=== PATIENT | male | born 1960 | race Native Hawaiian/Other Pacific Islander ===

== ENCOUNTER 2017-02-07 00:10 | Inpatient (IN) | payer BC, OTHER ==
[2017-02-07] MEDS ORDERED: Aspirin 325 mg EC Tablets PO STA (00:37)
--- NOTE | 2017-02-07 00:37 | C.PDOC ---
History Of Present Illness Patient presents to the ED with complaints of chest pain and shortness of breath that began tonight. Patient denies any fever, chills, nausea, or vomiting. Time Seen by Provider: 02/07/17 00:36 Chief Complaint (Nursing): Chest Pain History Per: Patient History/Exam Limitations: no limitations Onset/Duration Of Symptoms: Hrs Current Symptoms Are (Timing): Still Present Context: Other Severity: Mild Pain Scale Rating Of: 4 Quality: Dull, Other (chest discomfort ) Associated Symptoms: denies: Nausea, Diaphoresis Exacerbating Factors: None Alleviating Factors: None Recent travel outside of the [place]: No Additional History Per: Family Past Medical History Reviewed: Historical Data, Nursing Documentation, Vital Signs Vital Signs: Last Vital Signs Temp 97.8 F 02/07/17 06:06 Pulse 62 02/07/17 06:06 Resp 16 02/07/17 06:06 BP 115/69 02/07/17 06:06 Pulse Ox 98 02/07/17 06:06 - Medical History PMH: Diabetes, HTN, Hypothyroidism Family History: States: No Known Family Hx - Social History Hx Tobacco Use: Yes Hx Alcohol Use: No Hx Substance Use: No - Immunization History Hx Tetanus Toxoid Vaccination: No Hx Influenza Vaccination: Yes Hx Pneumococcal Vaccination: No Review Of Systems Constitutional: Negative for: Fever, Chills Eyes: Negative for: Vision Change Cardiovascular: Positive for: Chest Pain. Negative for: Palpitations Respiratory: Positive for: Shortness of Breath. Negative for: Cough Gastrointestinal: Negative for: Nausea, Vomiting, Abdominal Pain, Diarrhea Genitourinary: Negative for: Incontinence Musculoskeletal: Negative for: Back Pain Skin: Negative for: Rash, Lesions, Jaundice Neurological: Negative for: Weakness Psych: Negative for: Anxiety Physical Exam - Physical Exam Appears: Non-toxic, No Acute Distress Skin: Warm, Dry Head: Normacephalic Eye(s): bilateral: Normal Inspection Oral Mucosa: Moist Neck: Supple Chest: Symmetrical Cardiovascular: Rhythm Regular Respiratory: No Rales, Rhonchi (bases), Wheezing (few) Gastrointestinal/Abdominal: Soft, No Tenderness, No Distention, No Guarding, No Rebound Back: Normal Inspection Extremity: Normal ROM, No Tenderness, Pedal Edema Extremity: Bilateral: Atraumatic, Normal Color And Temperature Neurological/Psych: Oriented x3, Normal Speech, Normal Cognition Gait: Steady ED Course And Treatment - Laboratory Results Result Diagrams: 02/07/17 00:59 02/07/17 00:59 ECG: Interpreted By Me, Viewed By Me ECG Rhythm: Sinus Rhythm (71), 1st Degree HB, R BBB, Nonspecific Changes (lahb) O2 Sat by Pulse Oximetry: 100 (room air ) Pulse Ox Interpretation: Normal - Radiology CXR: Interpreted by Me, Viewed By Me CXR Interpretation: Yes: Other (? rll infiltrate). No: Fracture, Cardiomegaly, Pnemothorax Disposition Discussed With Dr.: Megan Gonzales Comment: accepted the pt on his service and took over the care at 3:15 AM Doctor Will See Patient In The: Hospital Counseled Patient/Family Regarding: Studies Performed, Diagnosis - Disposition Disposition: HOSPITALIZED Disposition Time: 00:37 Condition: FAIR - POA Present On Arrival: Poor Glycemic Control - Clinical Impression Clinical Impression: Chest pain, Elevated liver enzymes - Scribe Statement The provider has reviewed the documentation as recorded by the Scribe Jennifer Norwood All medical record entries made by the Scribe were at my direction and personally dictated by me. I have reviewed the chart and agree that the record accurately reflects my personal performance of the history, physical exam, medical decision making, and the department course for this patient. I have also personally directed, reviewed, and agree with the discharge instructions and disposition. Decision To Admit - Pt Status Changed To: Hospital Disposition Of: Inpatient - Admit Certification Admit to Inpatient:: After my assessment, the patient will require hospitalization for at least two midnights. This is because of the severity of symptoms shown, intensity of services needed, and/or the medical risk in this patient being treated as an outpatient. - InPatient: Physician Admission Certification: I certify that this patient requires 2 or more midnights of care for the following reason:: After my assessment, the patient will require hospitalization for at least two midnights. This is because of the severity of symptoms shown, intensity of services needed, and/or the medical risk in this patient being treated as an outpatient. - . Bed Request Type: Telemetry Admitting Physician: Megan Gonzales Patient Diagnosis: Chest pain, Elevated liver enzymes
[2017-02-07] MEDS ORDERED: Aspirin 325 mg EC Tablets PO ONE (00:50)
[2017-02-07 01:02] LABS: BASO % 0.6 % (0.0-2.0); EOS # 0.1 K/uL (0.0-0.7); EOS % 1.6 % (0.0-4.0); HEMATOCRIT 40.8 % (35.0-51.0); LYMPH # 1.6 K/uL (1.0-4.3); LYMPH % 30.5 % (20.0-40.0); MEAN CELL VOLUME 84.5 fL (80.0-94.0); MEAN CORPUSCULAR HEMOGLOBIN 27.5 pg (27.0-31.0); MEAN CORPUSCULAR HGB CONC 32.6 g/dL (33.0-37.0); MEAN PLATELET VOLUME 9.4 fL (7.2-11.7); MONO # 0.3 K/uL (0.0-0.8); MONO % 4.9 % (0.0-10.0); NRBC % 0.1 % (0.0-2.0); RED CELL DISTRIBUTION WIDTH 13.9 % (11.5-14.5); WHITE BLOOD COUNT 5.4 K/uL (4.8-10.8)
[2017-02-07 01:09] LABS: CHLORIDE 94 mmol/L (98-107)
[2017-02-07 01:10] LABS: POTASSIUM 4.1 mmol/L (3.6-5.2); SODIUM 132 mmol/L (132-148)
[2017-02-07 01:12] LABS: BILIRUBIN,TOTAL 0.6 mg/dL (0.2-1.3); CARBON DIOXIDE 28 mmol/L (22-30); GFR AFRICAN-AMERICAN > 60
[2017-02-07 01:13] LABS: ALKALINE PHOSPHATASE 73 U/L (38-126); ALT/SGPT 144 U/L (21-72); AST/SGOT 120 U/L (17-59); BLOOD UREA NITROGEN 29 mg/dL (9-20); CALCIUM 7.5 mg/dl (8.6-10.4); GLUCOSE,RANDOM 254 mg/dL (75-110); TOTAL PROTEIN 6.3 g/dL (6.3-8.3)
[2017-02-07 01:54] LABS: RBC URINE 3 /hpf (0-3); URINE BILIRUBIN NEGATIVE (NEGATIVE); URINE BLOOD NEGATIVE (NEGATIVE); URINE COLOR Yellow (YELLOW); URINE GLUCOSE (UA) 3+ mg/dL (Normal); URINE KETONE NEGATIVE (NEGATIVE); URINE LEUKOCYTE ESTERASE NEG Leu/uL (Negative); URINE PROTEIN 2+ mg/dL (NEGATIVE); URINE UROBILINOGEN NORMAL mg/dL (0.2-1.0); WBC URINE 2 /hpf (0-5)
[2017-02-07] MEDS ORDERED: Iodixanol 320 MG/ML 100 ML BOTTLE IV ONE ×2 (02:14→02:26)
[2017-02-07] MEDS ORDERED: metroNIDAZOLE IV 500 mg/100 ml 500 MG/100 ML BAG IVPB SCH (03:30)
[2017-02-07] MEDS ORDERED: metroNIDAZOLE IV 500 mg/100 ml 500 MG/100 ML BAG ONE (03:56)
--- NOTE | 2017-02-07 07:39 | RAD ---
PROCEDURE: CHEST RADIOGRAPH, 1 VIEW HISTORY: chest pain COMPARISON: 10/16/2014 FINDINGS: LUNGS: Mild venous congestion. Patchy bibasilar airspace opacities. PLEURA: No pneumothorax or pleural fluid seen. CARDIOVASCULAR: Cardiomegaly. OSSEOUS STRUCTURES: No significant abnormalities. VISUALIZED UPPER ABDOMEN: Normal. OTHER FINDINGS: None. IMPRESSION: Mild venous congestion. Patchy bibasilar airspace opacities.
--- NOTE | 2017-02-07 09:39 | CT ---
PROCEDURE: CT Abdomen and Pelvis without intravenous contrast HISTORY: elevated liver enzymes COMPARISON: None. TECHNIQUE: Multiple contiguous axial images were performed through the abdomen and pelvis with intravenous contrast. Subsequently, sagittal and coronal reformatted images were obtained. Contrast Dose: 100 cc of Visipaque intravenous contrast was administered. Radiation dose: Total exam DLP = 478 mGy-cm. This CT exam was performed using one or more of the following dose reduction techniques: Automated exposure control, adjustment of the mA and/or kV according to patient size, and/or use of iterative reconstruction technique. FINDINGS: LOWER THORAX: Heart is enlarged, specifically the right ventricle. Clinical correlation. Scattered atelectasis at the lung bases. Focal nodular consolidation within the medial right lower lobe measuring 1.1 centimeters. 2 millimeter nodule and or granuloma within the lateral aspect of the left lower lobe on series 3, image 3. LIVER: Unremarkable. No gross lesion or ductal dilatation. GALLBLADDER AND BILE DUCTS: Decompressed gallbladder. Small amount of pericholecystic fluid is detected. Clinical correlation. Correlation with right upper quadrant abdominal ultrasound may be helpful if clinically indicated. PANCREAS: Unremarkable. No gross lesion or ductal dilatation. SPLEEN: Unremarkable. ADRENALS: Unremarkable. No mass. KIDNEYS AND URETERS: Unremarkable. No hydronephrosis. No solid mass. VASCULATURE: Unremarkable. No aortic aneurysm. BOWEL: Mural thickening with trace surrounding inflammatory changes identified within the sigmoid colon which may represent an acute and or early acute colitis versus diverticulitis versus additional etiology. Clinical correlation. Mild thickening of the proximal stomach, nonspecific. APPENDIX: Unremarkable. Normal appendix. PERITONEUM: As above. LYMPH NODES: Unremarkable. No enlarged lymph nodes. BLADDER: Unremarkable. REPRODUCTIVE: Unremarkable. BONES: No acute fracture. OTHER FINDINGS: None. IMPRESSION: Decompressed gallbladder. Small amount of pericholecystic fluid is detected. Clinical correlation. Correlation with right upper quadrant abdominal ultrasound may be helpful if clinically indicated. Mural thickening within the sigmoid colon with trace surrounding inflammation which may represent an acute and or early acute focal colitis versus diverticulitis versus additional etiology. Clinical correlation. Mild thickening of the proximal stomach, nonspecific. Moderate cardiac enlargement. Clinical correlation. These findings were preliminarily reported at 3:08 a.m. on 02/07/[address] Terri Pang from [facility].
[2017-02-07] MEDS: Pantoprazole 40 mg EC Tab PO SCH (11:49)
[2017-02-07] MEDS: (Novolin R) Insulin Human Regular 100 units/ml vial SC SCH ×3 (11:50→22:37)
[2017-02-07] MEDS: Ciprofloxacin 400mg/200ml D5W 400 MG/200 ML BAG IVPB SCH ×2 (12:00→22:35)
--- NOTE | 2017-02-07 14:56 | CP.PCM.HP ---
History of Present Illness - History of Present Illness History of Present Illness: 57-year-old male patient with a past medical history of diabetes, hypertension, CAD, hypothyroidism, hyperlipidemia, systolic CHF, EF 40-50% 09/2014 with a bike or dyskinesis and moderate to severe mid antral septal wall hypokinesis presenting with chest pain and S OB. Patient describes intermittent midsternal chest pain radiating to left back. Exertion associated shortness of breath after walking for 30 seconds for the last 2 days. Denies abdominal pain, distention, heartburn, acid reflux, nausea, vomiting, hematemesis, hematochezia, melena, diarrhea, constipation, yellowish of skin or eyes, pruritus, confusion, unintentional weight loss. Denies recent travel, antibiotics, sick contacts. Present on Admission - Present on Admission Any Indicators Present on Admission: No Past Patient History - Past Medical History & Family History Past Medical History?: Yes - Past Social History Smoking Status: Former Smoker - CARDIAC Hx Hypertension: Yes - PULMONARY Hx Respiratory Disorders: No - NEUROLOGICAL Hx Neurological Disorder: No - HEENT Hx HEENT Problems: No - RENAL Hx Chronic Kidney Disease: No - ENDOCRINE/METABOLIC Hx Hypothyroidism: Yes - HEMATOLOGICAL/ONCOLOGICAL Hx Blood Disorders: No - INTEGUMENTARY Hx Dermatological Problems: No - MUSCULOSKELETAL/RHEUMATOLOGICAL Hx Musculoskeletal Disorders: No Hx Falls: No - GASTROINTESTINAL Hx Gastrointestinal Disorders: No - GENITOURINARY/GYNECOLOGICAL Hx Genitourinary Disorders: No - PSYCHIATRIC Hx Psychophysiologic Disorder: No Hx Substance Use: No - SURGICAL HISTORY Hx Surgeries: No - ANESTHESIA Hx Anesthesia: Yes Hx Anesthesia Reactions: No Hx Malignant Hyperthermia: No Meds Home Medications: Home Medication List Medication Instructions Recorded Confirmed Type Aspirin 325 mg PO DAILY #30 tab 02/12/17 Rx Atorvastatin Calcium 20 mg PO DAILY #30 tablet 02/12/17 Rx Metoprolol Succinate [Toprol XL] 25 mg PO DAILY #30 tab 02/12/17 Rx Allergies/Adverse Reactions: Allergies Allergy/AdvReac Type Severity Reaction Status Date / Time No Known Allergies Allergy Verified 03/11/17 09:38 Physical Exam - Constitutional Appears: Well - Head Exam Head Exam: ATRAUMATIC, NORMAL INSPECTION, NORMOCEPHALIC - Eye Exam Eye Exam: EOMI, Normal appearance, PERRL Pupil Exam: NORMAL ACCOMODATION, PERRL - ENT Exam ENT Exam: Mucous Membranes Moist, Normal Exam - Neck Exam Neck exam: Positive for: Normal Inspection - Respiratory Exam Respiratory Exam: Decreased Breath Sounds - Cardiovascular Exam Cardiovascular Exam: REGULAR RHYTHM, +S1, +S2 - GI/Abdominal Exam GI & Abdominal Exam: Diminished Bowel Sounds, Soft - Rectal Exam Rectal Exam: Deferred Results - Vital Signs Recent Vital Signs: Last Vital Signs Temp 98.2 F 02/07/17 12:00 Pulse 58 L 02/07/17 12:00 Resp 13 02/07/17 12:00 BP 129/74 02/07/17 12:00 Pulse Ox 100 02/07/17 12:00 - Labs Result Diagrams: 02/12/17 08:10 02/12/17 08:10 Labs: Laboratory Results - last 24 hr 02/07/17 10:58 Total Creatine Kinase 116 CK-MB (Mass) 1.80 Troponin I, Quant < 0.0120 Assessment & Plan (1) CAD (coronary artery disease) Status: Acute (2) Cardiomyopathy Status: Acute (3) Chest pain Status: Acute (4) Complete heart block Status: Acute (5) Decreased cardiac ejection fraction Status: Acute (6) Diabetes Status: Acute (7) Elevated liver enzymes Status: Acute (8) Syncope Status: Acute - Assessment and Plan (Free Text) Plan: Follow-up with cardiology abn stress test for cath tomrrow on aspand brilinta hoa as ordered
[2017-02-07] MEDS: metroNIDAZOLE IV 500 mg/100 ml 500 MG/100 ML BAG IVPB SCH (17:00)
[2017-02-07 18:04] LABS: CHLORIDE 98 mmol/L (98-107)
[2017-02-07 18:05] LABS: POTASSIUM 4.6 mmol/L (3.6-5.2); SODIUM 134 mmol/L (132-148)
[2017-02-07 18:07] LABS: ALB/GLOB RATIO 1.4 (1.0-2.1); ALKALINE PHOSPHATASE 51 U/L (38-126); AST/SGOT 51 U/L (17-59); BILIRUBIN,TOTAL 0.8 mg/dL (0.2-1.3); CARBON DIOXIDE 29 mmol/L (22-30); GFR AFRICAN-AMERICAN > 60
[2017-02-07 18:08] LABS: ALT/SGPT 106 U/L (21-72); BLOOD UREA NITROGEN 20 mg/dL (9-20); CALCIUM 8.2 mg/dl (8.6-10.4); GLUCOSE,RANDOM 296 mg/dL (75-110)
[2017-02-07] MEDS ORDERED: (Novolin 70/30) NPH/Regular 70/30 Units/ml 10 ml vial SC SCH (22:00)
[2017-02-07] MEDS ORDERED: (Novolog) Insulin Aspart, Recombinant 100 u/ml 10 ml vial SC SCH (22:00)
[2017-02-07] MEDS: Insulin Detemir 100 units/ml Vial (Levemir) SC SCH (22:36)
--- NOTE | 2017-02-08 00:12 | CP.PCM.CON ---
History of Present Illness - History of Present Illness History of Present Illness: Patient seen and evaluated Chest Pain For stress test in am Physical Examination - Constitutional Appears: No Acute Distress - Head Exam Head Exam: ATRAUMATIC, NORMOCEPHALIC - Eye Exam Eye Exam: EOMI, Normal appearance, PERRL Pupil Exam: NORMAL ACCOMODATION - ENT Exam ENT Exam: Mucous Membranes Moist - Respiratory Exam Respiratory Exam: Clear to Ausculation Bilateral, NORMAL BREATHING PATTERN. absent: Rales, Rhonchi, Wheezes - Cardiovascular Exam Cardiovascular Exam: REGULAR RHYTHM, +S1, +S2. absent: Murmur - GI/Abdominal Exam GI & Abdominal Exam: Soft, Normal Bowel Sounds. absent: Rigid - Extremities Exam Extremities Exam: Normal Capillary Refill. absent: Calf Tenderness, Pedal Edema - Neurological Exam Neurological Exam: Alert, Awake, Oriented x3 - Psychiatric Exam Psychiatric exam: Normal Affect, Normal Mood - Skin Skin Exam: Dry, Warm Past Patient History - Past Medical History & Family History Past Medical History?: Yes - Past Social History Smoking Status: Former Smoker - CARDIAC Hx Hypertension: Yes - PULMONARY Hx Respiratory Disorders: No - NEUROLOGICAL Hx Neurological Disorder: No - HEENT Hx HEENT Problems: No - RENAL Hx Chronic Kidney Disease: No - ENDOCRINE/METABOLIC Hx Hypothyroidism: Yes - HEMATOLOGICAL/ONCOLOGICAL Hx Blood Disorders: No - INTEGUMENTARY Hx Dermatological Problems: No - MUSCULOSKELETAL/RHEUMATOLOGICAL Hx Musculoskeletal Disorders: No Hx Falls: No - GASTROINTESTINAL Hx Gastrointestinal Disorders: No - GENITOURINARY/GYNECOLOGICAL Hx Genitourinary Disorders: No - PSYCHIATRIC Hx Psychophysiologic Disorder: No Hx Substance Use: No - SURGICAL HISTORY Hx Surgeries: No - ANESTHESIA Hx Anesthesia: Yes Hx Anesthesia Reactions: No Hx Malignant Hyperthermia: No Meds Home Medications: Home Medication List Medication Instructions Recorded Confirmed Type Aspirin 325 mg PO DAILY #30 tab 02/12/17 Rx Atorvastatin Calcium 20 mg PO DAILY #30 tablet 02/12/17 Rx Metoprolol Succinate [Toprol XL] 25 mg PO DAILY #30 tab 02/12/17 Rx Allergies/Adverse Reactions: Allergies Allergy/AdvReac Type Severity Reaction Status Date / Time No Known Allergies Allergy Unverified 10/16/14 15:25 - Medications Medications: Current Medications Aspirin (Aspirin) 325 mg PO DAILY [facility] Ciprofloxacin (Cipro 400mg/200ml Dsw) 400 mg in 200 mls @ 133 mls/hr IVPB Q12H [facility] Last Admin: 02/07/17 22:35 Dose: 133 mls/hr Metronidazole (Flagyl) 500 mg in 100 mls @ 100 mls/hr IVPB Q12H [facility] Last Admin: 02/07/17 17:00 Dose: 100 mls/hr Insulin Detemir (Levemir) 35 unit SC Q12 [facility] Last Admin: 02/07/17 22:36 Dose: 35 unit Insulin Human Regular (Novolin R) 0 unit SC ACHS [facility] PRN Reason: Protocol Last Admin: 02/07/17 22:37 Dose: Not Given Levothyroxine Sodium (Synthroid) 25 mcg PO DAILY@0630 [facility] Lisinopril (Zestril) 5 mg PO DAILY [facility] Metoprolol Succinate (Toprol Xl) 25 mg PO DAILY [facility] Pantoprazole Sodium (Protonix Ec Tab) 40 mg PO DAILY [facility] Last Admin: 02/07/17 11:49 Dose: 40 mg Ticagrelor (Brilinta) 90 mg PO BID [facility] Last Admin: 02/07/17 17:03 Dose: 90 mg Results - Vital Signs Recent Vital Signs: Last Vital Signs Temp 98.9 F 02/07/17 16:00 Pulse 57 L 02/07/17 16:00 Resp 15 02/07/17 16:00 BP 129/74 02/07/17 12:00 Pulse Ox 100 02/07/17 16:00 - Labs Result Diagrams: 02/12/17 08:10 02/12/17 08:10 Labs: Laboratory Results - last 24 hr 02/07/17 02/07/17 02/07/17 10:58 17:31 17:50 Sodium 134 Potassium 4.6 Chloride 98 Carbon Dioxide 29 Anion Gap 12 BUN 20 Creatinine 1.1 Est GFR ( Amer) > 60 Est GFR (Non-Af Amer) > 60 Random Glucose 296 H Calcium 8.2 L Total Bilirubin 0.8 AST 51 ALT 106 H D Alkaline Phosphatase 51 Total Creatine Kinase 116 93 CK-MB (Mass) 1.80 1.51 Troponin I, Quant < 0.0120 < 0.0120 Total Protein 6.0 L Albumin 3.5 Globulin 2.4 Albumin/Globulin Ratio 1.4 Assessment & Plan - Assessment and Plan (Free Text) Assessment: 1. Chest Pain 2. Hx of CAD/SC 3. DM 2 4. HTN 5. Hyperlipidemia Stress test and ECHO in am
[2017-02-08] MEDS: metroNIDAZOLE IV 500 mg/100 ml 500 MG/100 ML BAG IVPB SCH ×2 (04:38→16:57)
[2017-02-08] MEDS: Levothyroxine 25 MCG TAB PO SCH (05:55)
[2017-02-08 06:12] LABS: BASO % 0.7 % (0.0-2.0); EOS # 0.1 K/uL (0.0-0.7); EOS % 2.5 % (0.0-4.0); HEMATOCRIT 40.2 % (35.0-51.0); LYMPH # 1.5 K/uL (1.0-4.3); LYMPH % 35.6 % (20.0-40.0); MEAN CELL VOLUME 83.4 fL (80.0-94.0); MEAN CORPUSCULAR HEMOGLOBIN 27.7 pg (27.0-31.0); MEAN CORPUSCULAR HGB CONC 33.2 g/dL (33.0-37.0); MEAN PLATELET VOLUME 9.1 fL (7.2-11.7); MONO # 0.3 K/uL (0.0-0.8); NRBC % 0.1 % (0.0-2.0); RED CELL DISTRIBUTION WIDTH 13.7 % (11.5-14.5); WHITE BLOOD COUNT 4.2 K/uL (4.8-10.8)
[2017-02-08] MEDS: (Novolin R) Insulin Human Regular 100 units/ml vial SC SCH ×4 (08:00→21:29)
--- NOTE | 2017-02-08 08:06 | CP.PCM.CON ---
<Shari Mcgill - Last Filed: 02/08/17 12:18> History of Present Illness - History of Present Illness History of Present Illness: Gastroenterology Fellow/PGY4 Consult Note 57 year old male with history of Diabetes, Hypertension, CAD, Hypothyroidism, Hyperlipidemia, systolic CHF, EF 40-45% 09/2014 with apical dyskinesis and moderate to severe mid anteroseptal wall hypokinesis presenting with chest pain and shortness of breath. Patient describes intermittent midsternal chest pain radiating to left back during exertion associated with shortness of breath after walking for thirty seconds for the last two days. He denies abdominal pain , distension, heartburn, acid reflux, nausea, vomiting, hematemesis, hematochezia, melena, diarrhea, constipation, yellowing of skin or eyes, pruritis, confusion, or unintentional weight loss. Denies recent travel, antibiotics, or sick contacts. Notes normal daily bowel habits. No prior EGD or colonoscopy. Family- denies colon cancer or liver cancer Social-denies tobacco or illicit drug use, social alcohol use- once every three months Surgery- none Review of Systems - Review of Systems Review of Systems: A 12-point review of systems negative except for as above Past Patient History - Past Medical History & Family History Past Medical History?: Yes - Past Social History Smoking Status: Former Smoker - CARDIAC Hx Hypertension: Yes - PULMONARY Hx Respiratory Disorders: No - NEUROLOGICAL Hx Neurological Disorder: No - HEENT Hx HEENT Problems: No - RENAL Hx Chronic Kidney Disease: No - ENDOCRINE/METABOLIC Hx Hypothyroidism: Yes - HEMATOLOGICAL/ONCOLOGICAL Hx Blood Disorders: No - INTEGUMENTARY Hx Dermatological Problems: No - MUSCULOSKELETAL/RHEUMATOLOGICAL Hx Musculoskeletal Disorders: No Hx Falls: No - GASTROINTESTINAL Hx Gastrointestinal Disorders: No - GENITOURINARY/GYNECOLOGICAL Hx Genitourinary Disorders: No - PSYCHIATRIC Hx Psychophysiologic Disorder: No Hx Substance Use: No - SURGICAL HISTORY Hx Surgeries: No - ANESTHESIA Hx Anesthesia: Yes Hx Anesthesia Reactions: No Hx Malignant Hyperthermia: No Meds Allergies/Adverse Reactions: Allergies Allergy/AdvReac Type Severity Reaction Status Date / Time No Known Allergies Allergy Unverified 10/16/14 15:25 - Medications Medications: Current Medications Aspirin (Aspirin) 325 mg PO DAILY [facility] Ciprofloxacin (Cipro 400mg/200ml Dsw) 400 mg in 200 mls @ 133 mls/hr IVPB Q12H [facility] Last Admin: 02/07/17 22:35 Dose: 133 mls/hr Metronidazole (Flagyl) 500 mg in 100 mls @ 100 mls/hr IVPB Q12H [facility] Last Admin: 02/08/17 04:38 Dose: 100 mls/hr Insulin Detemir (Levemir) 35 unit SC Q12 [facility] Last Admin: 02/07/17 22:36 Dose: 35 unit Insulin Human Regular (Novolin R) 0 unit SC ACHS [facility] PRN Reason: Protocol Last Admin: 02/07/17 22:37 Dose: Not Given Levothyroxine Sodium (Synthroid) 25 mcg PO DAILY@0630 [facility] Last Admin: 02/08/17 05:55 Dose: 25 mcg Lisinopril (Zestril) 5 mg PO DAILY [facility] Metoprolol Succinate (Toprol Xl) 25 mg PO DAILY [facility] Pantoprazole Sodium (Protonix Ec Tab) 40 mg PO DAILY [facility] Last Admin: 02/07/17 11:49 Dose: 40 mg Ticagrelor (Brilinta) 90 mg PO BID [facility] Last Admin: 02/07/17 17:03 Dose: 90 mg Physical Exam - Constitutional Appears: Non-toxic, No Acute Distress - Head Exam Head Exam: ATRAUMATIC, NORMOCEPHALIC - Eye Exam Eye Exam: EOMI, PERRL Pupil Exam: PERRL. absent: Miosis, Mydriatic - ENT Exam ENT Exam: Mucous Membranes Moist, Normal Oropharynx - Neck Exam Neck exam: Positive for: Full Rom, Normal Inspection - Respiratory Exam Respiratory Exam: Clear to Auscultation Bilateral. absent: Rales, Rhonchi, Wheezes - Cardiovascular Exam Cardiovascular Exam: RRR, +S1, +S2. absent: Gallop, Rubs - GI/Abdominal Exam GI & Abdominal Exam: Normal Bowel Sounds, Soft. absent: Distended, Firm, Guarding, Organomegaly, Rebound, Rigid, Tenderness - Extremities Exam Extremities exam: Positive for: full ROM. Negative for: pedal edema - Neurological Exam Neurological exam: Alert - Psychiatric Exam Psychiatric exam: Normal Affect, Normal Mood - Skin Skin Exam: Dry, Intact, Normal Color, Warm Results - Vital Signs Recent Vital Signs: Last Vital Signs Temp 97.8 F 02/08/17 00:00 Pulse 57 L 02/07/17 16:00 Resp 15 02/07/17 16:00 BP 129/74 02/07/17 12:00 Pulse Ox 100 02/07/17 16:00 - Labs Result Diagrams: 02/08/17 06:07 02/07/17 17:50 Labs: Laboratory Results - last 24 hr 02/07/17 02/07/17 02/07/17 10:58 17:31 17:50 WBC RBC Hgb Hct MCV MCH MCHC RDW Plt Count MPV Neut % (Auto) Lymph % (Auto) [place] % (Auto) Eos % (Auto) Baso % (Auto) Neut # Lymph # [place] # Eos # Baso # Sodium 134 Potassium 4.6 Chloride 98 Carbon Dioxide 29 Anion Gap 12 BUN 20 Creatinine 1.1 Est GFR ( Amer) > 60 Est GFR (Non-Af Amer) > 60 Random Glucose 296 H Calcium 8.2 L Total Bilirubin 0.8 AST 51 ALT 106 H D Alkaline Phosphatase 51 Total Creatine Kinase 116 93 CK-MB (Mass) 1.80 1.51 Troponin I, Quant < 0.0120 < 0.0120 Total Protein 6.0 L Albumin 3.5 Globulin 2.4 Albumin/Globulin Ratio 1.4 Hepatitis A IgM Ab Hep Bs Antigen Hep B Core IgM Ab Hepatitis C Antibody 02/08/17 02/08/17 06:07 06:07 WBC 4.2 L RBC 4.82 Hgb 13.3 Hct 40.2 MCV 83.4 MCH 27.7 MCHC 33.2 RDW 13.7 Plt Count 159 MPV 9.1 Neut % (Auto) 55.2 Lymph % (Auto) 35.6 [place] % (Auto) 6.0 Eos % (Auto) 2.5 Baso % (Auto) 0.7 Neut # 2.3 Lymph # 1.5 [place] # 0.3 Eos # 0.1 Baso # 0.0 Sodium Potassium Chloride Carbon Dioxide Anion Gap BUN Creatinine Est GFR ( Amer) Est GFR (Non-Af Amer) Random Glucose Calcium Total Bilirubin AST ALT Alkaline Phosphatase Total Creatine Kinase CK-MB (Mass) Troponin I, Quant Total Protein Albumin Globulin Albumin/Globulin Ratio Hepatitis A IgM Ab Negative Hep Bs Antigen Negative Hep B Core IgM Ab Negative Hepatitis C Antibody Negative Assessment & Plan - Assessment and Plan (Free Text) Assessment: 57 year old male with history of Diabetes, Hypertension, CAD, Hypothyroidism, Hyperlipidemia, systolic CHF, EF 40-45% 09/2014 with apical dyskinesis and moderate to severe mid anteroseptal wall hypokinesis presenting with chest pain and shortness of breath. GI consultation for elevated LFTs and CT A/P IV contrast showing sigmoid thickening and small pericholecystic fluid. No prior EGD or colonoscopy. Plan: >likely nonspecific sigmoid colon findings with IV contrast only >benign abdominal exam >discontinue Cipro/Flagyl >chronic elevated transaminases since 2014 >likely due to fatty liver in setting of metabolic syndrome >Hepatitis panel negative, pending autoimmune workup >pending Ultrasound >cardiology managing- stress test today >would benefit from elective outpatient colonoscopy given for CRC screening and CT findings <Esther Calhoun MD - Last Filed: 02/08/17 12:32> Meds - Medications Medications: Current Medications Aspirin (Aspirin) 325 mg PO DAILY [facility] Ciprofloxacin (Cipro 400mg/200ml Dsw) 400 mg in 200 mls @ 133 mls/hr IVPB Q12H [facility] Last Admin: 02/07/17 22:35 Dose: 133 mls/hr Metronidazole (Flagyl) 500 mg in 100 mls @ 100 mls/hr IVPB Q12H [facility] Last Admin: 02/08/17 04:38 Dose: 100 mls/hr Insulin Detemir (Levemir) 35 unit SC Q12 [facility] Last Admin: 02/07/17 22:36 Dose: 35 unit Insulin Human Regular (Novolin R) 0 unit SC ACHS [facility] PRN Reason: Protocol Last Admin: 02/08/17 08:00 Dose: Not Given Levothyroxine Sodium (Synthroid) 25 mcg PO DAILY@0630 [facility] Last Admin: 02/08/17 05:55 Dose: 25 mcg Lisinopril (Zestril) 5 mg PO DAILY [facility] Metoprolol Succinate (Toprol Xl) 25 mg PO DAILY [facility] Pantoprazole Sodium (Protonix Ec Tab) 40 mg PO DAILY [facility] Last Admin: 02/07/17 11:49 Dose: 40 mg Ticagrelor (Brilinta) 90 mg PO BID [facility] Last Admin: 02/07/17 17:03 Dose: 90 mg Results - Vital Signs Recent Vital Signs: Last Vital Signs Temp 98.2 F 02/08/17 08:00 Pulse 56 L 02/08/17 08:00 Resp 18 02/08/17 08:00 BP 131/76 02/08/17 08:00 Pulse Ox 99 02/08/17 08:00 - Labs Result Diagrams: 02/08/17 06:07 02/07/17 17:50 Labs: Laboratory Results - last 24 hr 02/07/17 02/07/17 02/07/17 11:17 16:14 17:31 WBC RBC Hgb Hct MCV MCH MCHC RDW Plt Count MPV Neut % (Auto) Lymph % (Auto) [place] % (Auto) Eos % (Auto) Baso % (Auto) Neut # Lymph # [place] # Eos # Baso # Sodium Potassium Chloride Carbon Dioxide Anion Gap BUN Creatinine Est GFR ( Amer) Est GFR (Non-Af Amer) POC Glucose (mg/dL) 246 H 305 H Random Glucose Calcium Total Bilirubin AST ALT Alkaline Phosphatase Total Creatine Kinase 93 CK-MB (Mass) 1.51 Troponin I, Quant < 0.0120 Total Protein Albumin Globulin Albumin/Globulin Ratio Hepatitis A IgM Ab Hep Bs Antigen Hep B Core IgM Ab Hepatitis C Antibody 02/07/17 02/07/17 02/08/17 17:50 21:27 06:07 WBC 4.2 L RBC 4.82 Hgb 13.3 Hct 40.2 MCV 83.4 MCH 27.7 MCHC 33.2 RDW 13.7 Plt Count 159 MPV 9.1 Neut % (Auto) 55.2 Lymph % (Auto) 35.6 [place] % (Auto) 6.0 Eos % (Auto) 2.5 Baso % (Auto) 0.7 Neut # 2.3 Lymph # 1.5 [place] # 0.3 Eos # 0.1 Baso # 0.0 Sodium 134 Potassium 4.6 Chloride 98 Carbon Dioxide 29 Anion Gap 12 BUN 20 Creatinine 1.1 Est GFR ( Amer) > 60 Est GFR (Non-Af Amer) > 60 POC Glucose (mg/dL) 341 H Random Glucose 296 H Calcium 8.2 L Total Bilirubin 0.8 AST 51 ALT 106 H D Alkaline Phosphatase 51 Total Creatine Kinase CK-MB (Mass) Troponin I, Quant Total Protein 6.0 L Albumin 3.5 Globulin 2.4 Albumin/Globulin Ratio 1.4 Hepatitis A IgM Ab Hep Bs Antigen Hep B Core IgM Ab Hepatitis C Antibody 02/08/17 02/08/17 06:07 07:39 WBC RBC Hgb Hct MCV MCH MCHC RDW Plt Count MPV Neut % (Auto) Lymph % (Auto) [place] % (Auto) Eos % (Auto) Baso % (Auto) Neut # Lymph # [place] # Eos # Baso # Sodium Potassium Chloride Carbon Dioxide Anion Gap BUN Creatinine Est GFR ( Amer) Est GFR (Non-Af Amer) POC Glucose (mg/dL) 115 H Random Glucose Calcium Total Bilirubin AST ALT Alkaline Phosphatase Total Creatine Kinase CK-MB (Mass) Troponin I, Quant Total Protein Albumin Globulin Albumin/Globulin Ratio Hepatitis A IgM Ab Negative Hep Bs Antigen Negative Hep B Core IgM Ab Negative Hepatitis C Antibody Negative Attending/Attestation - Attestation I have personally seen and examined this patient.: Yes I have fully participated in the care of the patient.: Yes I have reviewed all pertinent clinical information: Yes Notes (Text): 02/08/17 12:30 Patient seen with GI fellow at bedside. This is a 57 year old male with history of Diabetes, Hypertension, CAD, Hypothyroidism, Hyperlipidemia, systolic CHF, EF 40-45% with apical dyskinesis and moderate to severe mid anteroseptal wall hypokinesis presenting with chest pain and shortness of breath concern for CAD. GI consultation for elevated LFTs and CT A/P IV contrast showing sigmoid thickening and small pericholecystic fluid. LFt downtrending with hepatitis profile negative. No indication for antibiotics. Scheduled for stress test today. Likely reason for transient elevation in LFT is congestive hepatopathy. rest of plan as per cardiology. Needs outpatient colonoscopy that will be set up once acute issues have resolved. thank you for letting us participate in the care of this patient
[2017-02-08] MEDS: Metoprolol Succinate 25 mg XL Tab PO SCH (12:50)
[2017-02-08] MEDS: Insulin Detemir 100 units/ml Vial (Levemir) SC SCH ×2 (12:55→21:32)
[2017-02-08] MEDS: Pantoprazole 40 mg EC Tab PO SCH (12:57)
[2017-02-08] MEDS: Ciprofloxacin 400mg/200ml D5W 400 MG/200 ML BAG IVPB SCH ×2 (12:58→23:00)
--- NOTE | 2017-02-08 14:12 | CARD ---
APPROVED REPORT EKG Measurement Heart [id number] <Conclusion> Sinus rhythm with 1st degree AV block Possible Left atrial enlargement Right bundle branch block Left anterior fascicular block Bifascicular block Anterolateral infarct, age undetermined Abnormal ECG
--- NOTE | 2017-02-08 18:29 | CP.PCM.PN ---
Subjective - Date & Time of Evaluation Date of Evaluation: 02/08/17 Time of Evaluation: 13:00 - Subjective Subjective: clinically same Objective - Vital Signs/Intake and Output Vital Signs (last 24 hours): Temp Pulse Resp BP Pulse Ox 97.2 F L 59 L 20 121/73 100 02/08/17 16:00 02/08/17 16:00 02/08/17 16:00 02/08/17 16:00 02/08/17 16:00 Intake and Output: 02/08/17 02/08/17 06:59 18:59 Intake Total 772 100 Output Total 0 Balance 772 100 - Medications Medications: Current Medications Aspirin (Aspirin) 325 mg PO DAILY [facility] Last Admin: 02/08/17 12:50 Dose: 325 mg Ciprofloxacin (Cipro 400mg/200ml Dsw) 400 mg in 200 mls @ 133 mls/hr IVPB Q12H [facility] Last Admin: 02/08/17 12:58 Dose: 133 mls/hr Metronidazole (Flagyl) 500 mg in 100 mls @ 100 mls/hr IVPB Q12H [facility] Last Admin: 02/08/17 16:57 Dose: 100 mls/hr Insulin Detemir (Levemir) 35 unit SC Q12 [facility] Last Admin: 02/08/17 12:55 Dose: 35 unit Insulin Human Regular (Novolin R) 0 unit SC ACHS [facility] PRN Reason: Protocol Last Admin: 02/08/17 16:58 Dose: 4 unit Levothyroxine Sodium (Synthroid) 25 mcg PO DAILY@0630 [facility] Last Admin: 02/08/17 05:55 Dose: 25 mcg Lisinopril (Zestril) 5 mg PO DAILY [facility] Last Admin: 02/08/17 12:56 Dose: 5 mg Metoprolol Succinate (Toprol Xl) 25 mg PO DAILY [facility] Last Admin: 02/08/17 12:50 Dose: 25 mg Pantoprazole Sodium (Protonix Ec Tab) 40 mg PO DAILY [facility] Last Admin: 02/08/17 12:57 Dose: 40 mg Ticagrelor (Brilinta) 90 mg PO BID [facility] Last Admin: 02/08/17 17:02 Dose: 90 mg - Labs Labs: 02/08/17 06:07 02/07/17 17:50 PT 11.2 SECONDS (9.7-12.2) 02/07/17 00:59 INR 1.0 02/07/17 00:59 APTT 34 SECONDS (21-34) 02/07/17 00:59 - Constitutional Appears: Well - Head Exam Head Exam: ATRAUMATIC, NORMAL INSPECTION, NORMOCEPHALIC - Eye Exam Eye Exam: EOMI, Normal appearance, PERRL Pupil Exam: NORMAL ACCOMODATION, PERRL - ENT Exam ENT Exam: Mucous Membranes Moist, Normal Exam - Neck Exam Neck Exam: Full ROM, Normal Inspection. absent: Lymphadenopathy - Respiratory Exam Respiratory Exam: Decreased Breath Sounds - Cardiovascular Exam Cardiovascular Exam: REGULAR RHYTHM, +S1, +S2 - GI/Abdominal Exam GI & Abdominal Exam: Soft, Diminished Bowel Sounds - Rectal Exam Rectal Exam: Deferred Assessment and Plan (1) Chest pain Status: Acute (2) Elevated liver enzymes Status: Acute (3) CAD (coronary artery disease) Status: Acute (4) Diabetes Status: Acute (5) Syncope Status: Acute - Assessment and Plan (Free Text) Plan: abn stress test for cath tomrrow on aspand brilinta hoa as ordered
--- NOTE | 2017-02-08 20:32 | CP.PCM.PN ---
Subjective - Date & Time of Evaluation Date of Evaluation: 02/08/17 Time of Evaluation: 17:30 - Subjective Subjective: Patient s/p Stress test Abnormal stress test For cath tomorrow D/W patient Objective - Vital Signs/Intake and Output Vital Signs (last 24 hours): Temp Pulse Resp BP Pulse Ox 97.2 F L 59 L 20 121/73 100 02/08/17 16:00 02/08/17 16:00 02/08/17 16:00 02/08/17 16:00 02/08/17 16:00 Intake and Output: 02/08/17 02/09/17 18:59 06:59 Intake Total 100 Balance 100 - Medications Medications: Current Medications Aspirin (Aspirin) 325 mg PO DAILY [facility] Last Admin: 02/08/17 12:50 Dose: 325 mg Ciprofloxacin (Cipro 400mg/200ml Dsw) 400 mg in 200 mls @ 133 mls/hr IVPB Q12H [facility] Last Admin: 02/08/17 12:58 Dose: 133 mls/hr Metronidazole (Flagyl) 500 mg in 100 mls @ 100 mls/hr IVPB Q12H [facility] Last Admin: 02/08/17 16:57 Dose: 100 mls/hr Insulin Detemir (Levemir) 35 unit SC Q12 [facility] Last Admin: 02/08/17 12:55 Dose: 35 unit Insulin Human Regular (Novolin R) 0 unit SC ACHS [facility] PRN Reason: Protocol Last Admin: 02/08/17 16:58 Dose: 4 unit Levothyroxine Sodium (Synthroid) 25 mcg PO DAILY@0630 [facility] Last Admin: 02/08/17 05:55 Dose: 25 mcg Lisinopril (Zestril) 5 mg PO DAILY [facility] Last Admin: 02/08/17 12:56 Dose: 5 mg Metoprolol Succinate (Toprol Xl) 25 mg PO DAILY [facility] Last Admin: 02/08/17 12:50 Dose: 25 mg Pantoprazole Sodium (Protonix Ec Tab) 40 mg PO DAILY [facility] Last Admin: 02/08/17 12:57 Dose: 40 mg Ticagrelor (Brilinta) 90 mg PO BID [facility] Last Admin: 02/08/17 17:02 Dose: 90 mg - Labs Labs: 02/08/17 06:07 02/07/17 17:50 PT 11.2 SECONDS (9.7-12.2) 02/07/17 00:59 INR 1.0 02/07/17 00:59 APTT 34 SECONDS (21-34) 02/07/17 00:59
--- NOTE | 2017-02-08 22:45 | CARD ---
APPROVED REPORT Protocol: KIKI Test Type: Stress Nuclear Test Indications: CHEST PAIN Medications: list scan Medical History: CHEST PAIN Target HR: 162 bpm Resting ECG: RBBB Resting Heart Rate: 58 bpm Resting Blood Pressure: 148/70mmHg submaximum (85%): 138 bpm TEST SUMMARY PRETESTWARM-UP00:[id number]/70.0. EXERCISESTAGE 100:[id number]/70.2. EXERCISESTAGE 203:[id number]/70.0. EXERCISESTAGE 301:[id number]/70.0. [id number]/60.1. POST EXERCISE Reason for Termination: Non-sustained runs of v-tach Target HR: No Max HR: 69 bpm 74% of Maximum Predicted HR: 162 bpm Exercise duration: 05:27 min:sec, 3 Stage Exercise capacity: 10.1METs Max Blood Pressure: 174/60mmHg Blood Pressure response to exercise: appropriate Heart Rate response to exercise: appropriate Chest Pain: No, none Angina index: 0 Arrhythmia: Yes, Non-sustained runs of vtach ST Change: No, None Deviation: 0 mm INTERPRETATION Stress EKG Conclusion: Nuclear report to follow EXAM: Myocardial Perfusion REST/STRESS Imaging Protocol The imaging protocol used to acquire images was Rest Tc-99m/stress Tc-99m 1 day Rest Spect myocardial perfusion imaging was performed in supine position 41 minutes following the injection of 13.2 mCi of Tc-99 Myoview. Gated Stress Spect was performed 40 minutes after intravenous 31.4 mCi Tc-99 Myoview injection. The images were gated to evaluate regional wall motion and calculate ventricular ejection fraction.Images were reconstructed using backfilter projection method in short horizontal and verticle long axis. Spect slices were generated. RESTING DATA YVC032.93ogPI0.30L/min ESV76.00mlMyocardial Bwod819.00g Av. Heart Rate56.00bpm EF51.00% STRESS DATA GTF495.74vtXE2.30L/min ESV71.00mlMyocardial Cafp947.00g EF48.00% Regional WT score at stress:3.00 Regional WM score at stress:0.00 Summed WT score at stress:37.00 Av. Heart Rate66.00bpmSummed WM score at stress:19.00 LV Perf. Quant 17 Seg. SSS28.00 17 Seg. SRS26.00 17 Seg. SDS2.00 Stress Defect Extent (% LAD)71.30Rest Defect Extent (% LAD)71.90Rev. Defect Extent (% LAD)4.40 Stress Defect Extent (% LCX)15.00Rest Defect Extent (% LCX)26.30Rev. Defect Extent (% LCX)1.30 Stress Defect Extent (% RCA)41.10Rest Defect Extent (% RCA)37.80Rev. Defect Extent (% RCA)2.20 Stress Defect Extent (% SIM)56.70Rest Defect Extent (% SIM)55.90Rev. Defect Extent (% SIM)4.30 Other Information Quality:Good IMPRESSION Abnormal Myocardial Perfusion exercise stress study Left Ventricle LV Size/Shape: The left ventricle is normal size. LV Function:The Ejection Fraction is 45-50%. Conclusion 1. Large fixed anterior and apical defect suggestive of scar and old IA. EF=45% 2. Recommend Cardiac Cath
[2017-02-09] MEDS: metroNIDAZOLE IV 500 mg/100 ml 500 MG/100 ML BAG IVPB SCH ×2 (04:00→17:27)
[2017-02-09] MEDS: Levothyroxine 25 MCG TAB PO SCH (06:29)
[2017-02-09] MEDS: (Novolin R) Insulin Human Regular 100 units/ml vial SC SCH ×5 (07:56→22:34)
[2017-02-09] MEDS ORDERED: Iodixanol 320 MG/ML 200 ML BOTTLE IV ONE ×2 (10:09→10:50)
[2017-02-09] MEDS ORDERED: Iodixanol 320 MG/ML 100 ML BOTTLE IV ONE (10:09)
--- NOTE | 2017-02-09 11:02 | CP.PCM.PN ---
Subjective - Date & Time of Evaluation Date of Evaluation: 02/09/17 Time of Evaluation: 08:40 - Subjective Subjective: clinically same Objective - Vital Signs/Intake and Output Vital Signs (last 24 hours): Temp Pulse Resp BP Pulse Ox 98.0 F 56 L 20 110/66 98 02/09/17 08:31 02/09/17 08:31 02/09/17 08:31 02/09/17 08:31 02/09/17 08:31 Intake and Output: 02/09/17 02/09/17 06:59 18:59 Intake Total 400 Output Total 0 Balance 400 - Medications Medications: Current Medications Aspirin (Aspirin) 325 mg PO DAILY [facility] Last Admin: 02/08/17 12:50 Dose: 325 mg Ciprofloxacin (Cipro 400mg/200ml Dsw) 400 mg in 200 mls @ 133 mls/hr IVPB Q12H [facility] Last Admin: 02/08/17 23:00 Dose: 133 mls/hr Metronidazole (Flagyl) 500 mg in 100 mls @ 100 mls/hr IVPB Q12H [facility] Last Admin: 02/09/17 04:00 Dose: 100 mls/hr Insulin Detemir (Levemir) 35 unit SC Q12 [facility] Last Admin: 02/08/17 21:32 Dose: 35 unit Insulin Human Regular (Novolin R) 0 unit SC ACHS [facility] PRN Reason: Protocol Last Admin: 02/09/17 07:56 Dose: Not Given Levothyroxine Sodium (Synthroid) 25 mcg PO DAILY@0630 [facility] Last Admin: 02/09/17 06:29 Dose: 25 mcg Lisinopril (Zestril) 5 mg PO DAILY [facility] Last Admin: 02/08/17 12:56 Dose: 5 mg Metoprolol Succinate (Toprol Xl) 25 mg PO DAILY [facility] Last Admin: 02/08/17 12:50 Dose: 25 mg Pantoprazole Sodium (Protonix Ec Tab) 40 mg PO DAILY [facility] Last Admin: 02/08/17 12:57 Dose: 40 mg Ticagrelor (Brilinta) 90 mg PO BID [facility] Last Admin: 02/08/17 17:02 Dose: 90 mg - Labs Labs: 02/08/17 06:07 02/07/17 17:50 PT 11.2 SECONDS (9.7-12.2) 02/07/17 00:59 INR 1.0 02/07/17 00:59 APTT 34 SECONDS (21-34) 02/07/17 00:59 - Constitutional Appears: Well - Head Exam Head Exam: ATRAUMATIC, NORMAL INSPECTION, NORMOCEPHALIC - Eye Exam Eye Exam: EOMI, Normal appearance, PERRL Pupil Exam: NORMAL ACCOMODATION, PERRL - ENT Exam ENT Exam: Mucous Membranes Moist, Normal Exam - Neck Exam Neck Exam: Full ROM, Normal Inspection. absent: Lymphadenopathy - Respiratory Exam Respiratory Exam: Decreased Breath Sounds - Cardiovascular Exam Cardiovascular Exam: REGULAR RHYTHM, +S1, +S2 - GI/Abdominal Exam GI & Abdominal Exam: Soft, Diminished Bowel Sounds - Rectal Exam Rectal Exam: Deferred Assessment and Plan (1) Chest pain Status: Acute (2) Decreased cardiac ejection fraction Status: Acute (3) Elevated liver enzymes Status: Acute (4) CAD (coronary artery disease) Status: Acute (5) Diabetes Status: Acute (6) Syncope Status: Acute - Assessment and Plan (Free Text) Plan: cardaic cath report salvador espinoza discuss iwmat pearce after test is done hoa as ordere dcipro and flagyl discusse dihwt family
--- NOTE | 2017-02-09 11:39 | CARD ---
APPROVED REPORT EXAM: Two-dimensional and M-mode echocardiogram with Doppler and color Doppler. Other Information Quality : GoodRhythm : NSR INDICATION Chest Pain RISK FACTORS Hypertension Diabetes M-Mode DIMENSIONS RVDd1.51 (2.1-3.2cm)Left Atrium (MM)3.36 (2.5-4.0cm) IVSd0.63 (0.7-1.1cm)Aortic Root2.91 (2.2-3.7cm) LVDd6.82 (4.0-5.6cm)Aortic Cusp Exc.2.18 (1.5-2.0cm) PWd0.70 (0.7-1.1cm)FS (%) 24 % LVDs5.20 (2.0-3.8cm)LVEF (%)46 (>50%) Mitral Valve MV E Yxszfosi938.1cm/sMV A Mbmhqtzd45.1cm/sE/A ratio1.5 TDI E/Lateral E'0.0E/Medial E'0.0 Tricuspid Valve TR Peak Svlknxpl457hl/sTR Peak Gr.[id number] LEFT VENTRICLE The Left Ventricle is severely dilated. There is normal left ventricular wall thickness. visual estimation of LVThe Ejection Fraction is 25-30%. akinesia of inferoapical,apex & anteroapical.no mural clots. Transmitral Doppler flow pattern is Grade II-pseudonormal filling dynamics. The left atrial pressure is moderately elevated. RIGHT VENTRICLE The right ventricle is normal size. rv Systolic function is mildly reduced. ATRIA The left atrium size is normal. The right atrium size is normal. The interatrial septum is intact with no evidence for an atrial septal defect. AORTIC VALVE The aortic valve is trileaflet. There is mild aortic regurgitation. MITRAL VALVE The mitral valve is normal in structure. Mitral regurgitation is moderate. TRICUSPID VALVE The tricuspid valve is normal in structure. There is trace tricuspid regurgitation. PULMONIC VALVE The pulmonary valve is normal in structure. There is mild pulmonic valvular regurgitation. GREAT VESSELS The aortic root is normal in size. The IVC is normal in size and collapses >50% with inspiration. PERICARDIAL EFFUSION small posterior pericardial effusion is noted. <Conclusion> The Left Ventricle is severely dilated. There is normal left ventricular wall thickness. visual estimation of LVThe Ejection Fraction is 25-30%. akinesia of inferoapical,apex & anteroapical.no mural clots. Transmitral Doppler flow pattern is Grade II-pseudonormal filling dynamics. The left atrial pressure is moderately elevated. Systolic function is mildly reduced. There is mild aortic regurgitation. Mitral regurgitation is moderate. ischemic cardiomyopathy.
[2017-02-09] MEDS: Insulin Detemir 100 units/ml Vial (Levemir) SC SCH ×2 (11:43→22:39)
[2017-02-09] MEDS: Metoprolol Succinate 25 mg XL Tab PO SCH (11:44)
[2017-02-09] MEDS: Pantoprazole 40 mg EC Tab PO SCH (11:44)
--- NOTE | 2017-02-09 15:43 | CP.PCM.CON ---
<Evens Finnegan - Last Filed: 02/09/17 17:35> History of Present Illness - History of Present Illness History of Present Illness: EP-Cardio Consult Note for Dr. Tomeka Finnegan PGY-1, Internal Medicine Consulted for: Life Vest HPI: This is a 57 yo M with PMH notable for DMII, HTN, CAD, Hypothyroid, HLD, Systolic CHF, and an EF of 25-30% (previously 40-45% on Echo Sep 2014) who initially presented with complaint of chest pain and shortness of breath. Echo was obtained and his newly decreased EF was determined, so a stress test was obtained, which came back abnormal, so pt today underwent cardiac cath, which confirmed the low EF and discovered 2-vessel disease. We were consulted for a Life Vest given the low EF and risk for sudden cardiac . 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 Denies chest pain, shortness of breath, left leg pain or squeezing sensation (site of cath access) , lightheadedness/dizziness, or weakness. He reports compliance with all home meds. PMH: As above PSH: Cardiac cath today, denies prior surgeries FHx: denies SHx: Denies tobacco/illicits/IVDA, admits social EtOH PMD: No family provider listed in [employer] Review of Systems - Constitutional Constitutional: absent: Chills, Fever, Weakness - EENT Eyes: absent: Blurred Vision, Change in Vision, Loss of Vision Ears: absent: Dizziness Nose/Mouth/Throat: absent: Sore Throat, Neck Pain - Cardiovascular Cardiovascular: Chest Pain (prior to admission, none since admission), Dyspnea ( prior to admission, none since admission). absent: Lightheadedness, Palpitations, Syncope - Respiratory Respiratory: Dyspnea (prior to admission, none since admission). absent: Cough , Hemoptysis, Pain on Inspiration - Gastrointestinal Gastrointestinal: absent: Abdominal Pain, Constipation, Diarrhea, Nausea, Vomiting - Musculoskeletal Musculoskeletal: absent: Numbness, Radiating Pain into Limb - Integumentary Integumentary: absent: Pruritus, Rash - Neurological Neurological: absent: Loss of Vision, Syncope, Vertigo, Weakness, Other Visual Disturbances - Psychiatric Psychiatric: absent: Anxiety - Endocrine Endocrine: absent: Fatigue, Palpitations Past Patient History - Past Medical History & Family History Past Medical History?: Yes - Past Social History Smoking Status: Former Smoker - CARDIAC Hx Hypertension: Yes - PULMONARY Hx Respiratory Disorders: No - NEUROLOGICAL Hx Neurological Disorder: No - HEENT Hx HEENT Problems: No - RENAL Hx Chronic Kidney Disease: No - ENDOCRINE/METABOLIC Hx Hypothyroidism: Yes - HEMATOLOGICAL/ONCOLOGICAL Hx Blood Disorders: No - INTEGUMENTARY Hx Dermatological Problems: No - MUSCULOSKELETAL/RHEUMATOLOGICAL Hx Musculoskeletal Disorders: No Hx Falls: No - GASTROINTESTINAL Hx Gastrointestinal Disorders: No - GENITOURINARY/GYNECOLOGICAL Hx Genitourinary Disorders: No - PSYCHIATRIC Hx Psychophysiologic Disorder: No Hx Substance Use: No - SURGICAL HISTORY Hx Surgeries: No - ANESTHESIA Hx Anesthesia: Yes Hx Anesthesia Reactions: No Hx Malignant Hyperthermia: No Meds Allergies/Adverse Reactions: Allergies Allergy/AdvReac Type Severity Reaction Status Date / Time No Known Allergies Allergy Unverified 10/16/14 15:25 - Medications Medications: Current Medications Aspirin (Aspirin) 325 mg PO DAILY [facility] Last Admin: 02/09/17 11:43 Dose: Not Given Ciprofloxacin (Cipro 400mg/200ml Dsw) 400 mg in 200 mls @ 133 mls/hr IVPB Q12H [facility] Last Admin: 02/08/17 23:00 Dose: 133 mls/hr Metronidazole (Flagyl) 500 mg in 100 mls @ 100 mls/hr IVPB Q12H [facility] Last Admin: 02/09/17 04:00 Dose: 100 mls/hr Sodium Chloride (Sodium Chloride 0.9%) 1,000 mls @ 50 mls/hr IV .Q20H [facility] Stop: 02/10/17 12:00 Insulin Detemir (Levemir) 35 unit SC Q12 [facility] Last Admin: 02/09/17 11:43 Dose: Not Given Insulin Human Regular (Novolin R) 0 unit SC ACHS [facility] PRN Reason: Protocol Last Admin: 02/09/17 11:44 Dose: Not Given Levothyroxine Sodium (Synthroid) 25 mcg PO DAILY@0630 [facility] Last Admin: 02/09/17 06:29 Dose: 25 mcg Lisinopril (Zestril) 5 mg PO DAILY [facility] Last Admin: 02/09/17 11:45 Dose: Not Given Metoprolol Succinate (Toprol Xl) 25 mg PO DAILY [facility] Last Admin: 02/09/17 11:44 Dose: Not Given Pantoprazole Sodium (Protonix Ec Tab) 40 mg PO DAILY [facility] Last Admin: 02/09/17 11:44 Dose: Not Given Ticagrelor (Brilinta) 90 mg PO BID [facility] Last Admin: 02/09/17 11:43 Dose: Not Given Physical Exam - Constitutional Appears: Well, Non-toxic, No Acute Distress - Head Exam Head Exam: ATRAUMATIC, NORMAL INSPECTION, NORMOCEPHALIC - Eye Exam Eye Exam: EOMI, Normal appearance. absent: Conjunctival injection, Scleral icterus Pupil Exam: absent: Irregular, Unequal - ENT Exam ENT Exam: Mucous Membranes Moist - Neck Exam Neck exam: Positive for: Full Rom - Respiratory Exam Respiratory Exam: Clear to Auscultation Bilateral, NORMAL BREATHING PATTERN. absent: Accessory Muscle Use, Chest Wall Tenderness, Decreased Breath Sounds, Rales, Rhonchi, Wheezes - Cardiovascular Exam Cardiovascular Exam: REGULAR RHYTHM, RRR, +S1, +S2. absent: Bradycardia, Tachycardia, Irregular Rhythm, +S4 - GI/Abdominal Exam GI & Abdominal Exam: Normal Bowel Sounds, Soft. absent: Diminished Bowel Sounds , Hyperactive Bowel Sounds, Hypoactive Bowel Sounds, Tenderness - Extremities Exam Extremities exam: Negative for: calf tenderness, pedal edema, tenderness Additional comments: pressure bandaging at LLE groin region, site of femoral canulation for cath, no active oozing or bleeding, intact distal pulses, normal coloration, no tenderness to palpation at surrounding site - Neurological Exam Neurological exam: Alert, Oriented x3 - Psychiatric Exam Psychiatric exam: Normal Affect, Normal Mood - Skin Skin Exam: Dry, Intact (except at LLE groin femoral cannulation site), Normal Color, Warm Results - Vital Signs Recent Vital Signs: Last Vital Signs Temp 97.4 F L 02/09/17 14:06 Pulse 56 L 02/09/17 14:06 Resp 20 02/09/17 14:06 BP 130/74 02/09/17 14:06 Pulse Ox 99 02/09/17 14:06 - Labs Result Diagrams: 02/09/17 17:05 02/07/17 17:50 Labs: Laboratory Results - last 24 hr 02/07/17 02/08/17 02/08/17 07:14 16:27 21:12 POC Glucose (mg/dL) 301 H 316 H Anti-Mitochondrial Ab Negative Anti-Smooth Muscle Ab Negative 02/09/17 07:36 POC Glucose (mg/dL) 148 H Anti-Mitochondrial Ab Anti-Smooth Muscle Ab Assessment & Plan (1) Decreased cardiac ejection fraction Assessment and Plan: EKG 02/07/17: Sinus rhythm at 71, 1st degree AV block with OR 222, Possible Left atrial enlargement, Right bundle branch block, Left anterior fascicular block, * Bifascicular block Anterolateral infarct (age undetermined), Abnormal ECG Echo 02/07/17: Severely dilated LV with normal wall thickness, EF 25-30%, ischemic cardiomyopathy, Akinesia of inferoapical/apical/anteroapical segements , no mural clots, Grade-II pseudonormal filling, moderately elevated LAP, Mild AR, Moderate MR Stress test 02/08/17: Abnormal stress test, large anterior and apical defects suggestive of scar and old MT Cardiac Cath 02/09/17: pending official report, 2-vessel disease, confirmed EF 25 -30% -Dilated and ischemic cardiomyopathy, EF 25-30% -At risk for sudden cardiac , will need pacing -Life Vest ordered -Continue current medical management as per primary Cardio (Dr. Gong) Status: Acute - Assessment and Plan (Free Text) Assessment: Case discussed with Dr. Eckert. - Date & Time Date: 02/09/17 Time: 13:00 <Em Eckert - Last Filed: 02/10/17 12:59> Meds - Medications Medications: Current Medications Acetaminophen (Tylenol 325mg Tab) 650 mg PO Q6 PRN PRN Reason: Pain, moderate (4-7) Aspirin (Aspirin) 325 mg PO DAILY [facility] Last Admin: 02/10/17 08:59 Dose: 325 mg Metronidazole (Flagyl) 500 mg in 100 mls @ 100 mls/hr IVPB Q12H [facility] Last Admin: 02/10/17 03:12 Dose: 100 mls/hr Insulin Detemir (Levemir) 35 unit SC Q12 [facility] Last Admin: 02/10/17 10:00 Dose: Not Given Insulin Human Regular (Novolin R) 0 unit SC ACHS [facility] PRN Reason: Protocol Last Admin: 02/10/17 12:15 Dose: 3 unit Levothyroxine Sodium (Synthroid) 25 mcg PO DAILY@0630 [facility] Last Admin: 02/10/17 05:45 Dose: 25 mcg Lisinopril (Zestril) 5 mg PO DAILY [facility] Last Admin: 02/10/17 08:59 Dose: 5 mg Pantoprazole Sodium (Protonix Ec Tab) 40 mg PO DAILY [facility] Last Admin: 02/10/17 08:59 Dose: 40 mg Results - Vital Signs Recent Vital Signs: Last Vital Signs Temp 97.5 F L 02/10/17 07:00 Pulse 64 02/10/17 07:00 Resp 20 02/10/17 07:00 BP 111/71 02/10/17 07:00 Pulse Ox 100 02/10/17 07:00 - Labs Result Diagrams: 02/10/17 06:03 02/10/17 06:03 Labs: Laboratory Results - last 24 hr 02/07/17 02/09/17 02/09/17 07:14 16:56 17:05 WBC 6.2 RBC 4.73 Hgb 13.2 Hct 39.1 MCV 82.7 MCH 28.0 MCHC 33.8 RDW 13.7 Plt Count 162 MPV 9.4 Neut % (Auto) 69.3 Lymph % (Auto) 23.3 [place] % (Auto) 6.2 Eos % (Auto) 0.6 Baso % (Auto) 0.6 Neut # 4.3 Lymph # 1.4 [place] # 0.4 Eos # 0.0 Baso # 0.0 Sodium Potassium Chloride Carbon Dioxide Anion Gap BUN Creatinine Est GFR ( Amer) Est GFR (Non-Af Amer) POC Glucose (mg/dL) 165 H Random Glucose Calcium Total Bilirubin AST ALT Alkaline Phosphatase Total Protein Albumin Globulin Albumin/Globulin Ratio Anti-Mitochondrial Ab Negative Anti-Smooth Muscle Ab Negative 02/09/17 02/10/17 02/10/17 21:03 06:03 06:03 WBC 4.5 L RBC 4.67 Hgb 13.1 Hct 38.7 MCV 82.8 MCH 28.0 MCHC 33.8 RDW 13.7 Plt Count 167 MPV 9.6 Neut % (Auto) 64.2 Lymph % (Auto) 25.2 [place] % (Auto) 8.4 Eos % (Auto) 1.7 Baso % (Auto) 0.5 Neut # 2.9 Lymph # 1.1 [place] # 0.4 Eos # 0.1 Baso # 0.0 Sodium 134 Potassium 4.1 Chloride 97 L Carbon Dioxide 29 Anion Gap 12 BUN 17 Creatinine 1.0 Est GFR ( Amer) > 60 Est GFR (Non-Af Amer) > 60 POC Glucose (mg/dL) 210 H Random Glucose 300 H Calcium 8.4 L Total Bilirubin 0.7 AST 30 ALT 58 Alkaline Phosphatase 46 Total Protein 5.9 L Albumin 3.4 L Globulin 2.5 Albumin/Globulin Ratio 1.4 Anti-Mitochondrial Ab Anti-Smooth Muscle Ab 02/10/17 02/10/17 06:19 12:00 WBC RBC Hgb Hct MCV MCH MCHC RDW Plt Count MPV Neut % (Auto) Lymph % (Auto) [place] % (Auto) Eos % (Auto) Baso % (Auto) Neut # Lymph # [place] # Eos # Baso # Sodium Potassium Chloride Carbon Dioxide Anion Gap BUN Creatinine Est GFR ( Amer) Est GFR (Non-Af Amer) POC Glucose (mg/dL) 291 H 296 H Random Glucose Calcium Total Bilirubin AST ALT Alkaline Phosphatase Total Protein Albumin Globulin Albumin/Globulin Ratio Anti-Mitochondrial Ab Anti-Smooth Muscle Ab Attending/Attestation - Attestation I have personally seen and examined this patient.: Yes I have fully participated in the care of the patient.: Yes I have reviewed all pertinent clinical information: Yes Notes (Text): 02/10/17 12:59 Pt life vest candidate will call [employer]
[2017-02-09 17:10] LABS: BASO % 0.6 % (0.0-2.0); EOS % 0.6 % (0.0-4.0); HEMATOCRIT 39.1 % (35.0-51.0); LYMPH # 1.4 K/uL (1.0-4.3); LYMPH % 23.3 % (20.0-40.0); MEAN CELL VOLUME 82.7 fL (80.0-94.0); MEAN CORPUSCULAR HGB CONC 33.8 g/dL (33.0-37.0); MEAN PLATELET VOLUME 9.4 fL (7.2-11.7); MONO # 0.4 K/uL (0.0-0.8); MONO % 6.2 % (0.0-10.0); RED CELL DISTRIBUTION WIDTH 13.7 % (11.5-14.5); WHITE BLOOD COUNT 6.2 K/uL (4.8-10.8)
[2017-02-09] MEDS: Sodium Chloride 0.9% 1,000 ML IV SCH (17:27)
[2017-02-09] MEDS: Ciprofloxacin 400mg/200ml D5W 400 MG/200 ML BAG IVPB SCH (22:33)
--- NOTE | 2017-02-10 01:35 | CP.PCM.PN ---
Subjective - Date & Time of Evaluation Date of Evaluation: 02/09/17 Time of Evaluation: 16:00 - Subjective Subjective: Patient s/p Cath Triple vessel disease LV EF 30% Thallium viability study in am Objective - Vital Signs/Intake and Output Vital Signs (last 24 hours): Temp Pulse Resp BP Pulse Ox 97.6 F 63 20 134/74 99 02/09/17 16:07 02/09/17 16:07 02/09/17 16:07 02/09/17 16:07 02/09/17 16:07 - Medications Medications: Current Medications Acetaminophen (Tylenol 325mg Tab) 650 mg PO Q6 PRN PRN Reason: Pain, moderate (4-7) Aspirin (Aspirin) 325 mg PO DAILY [facility] Last Admin: 02/09/17 11:43 Dose: Not Given Ciprofloxacin (Cipro 400mg/200ml Dsw) 400 mg in 200 mls @ 133 mls/hr IVPB Q12H [facility] Last Admin: 02/09/17 22:33 Dose: 133 mls/hr Metronidazole (Flagyl) 500 mg in 100 mls @ 100 mls/hr IVPB Q12H [facility] Last Admin: 02/09/17 17:27 Dose: 100 mls/hr Sodium Chloride (Sodium Chloride 0.9%) 1,000 mls @ 50 mls/hr IV .Q20H [facility] Stop: 02/10/17 12:00 Last Admin: 02/09/17 17:27 Dose: 50 mls/hr Insulin Detemir (Levemir) 35 unit SC Q12 [facility] Last Admin: 02/09/17 22:39 Dose: 35 unit Insulin Human Regular (Novolin R) 0 unit SC ACHS [facility] PRN Reason: Protocol Last Admin: 02/09/17 22:30 Dose: Not Given Levothyroxine Sodium (Synthroid) 25 mcg PO DAILY@0630 [facility] Last Admin: 02/09/17 06:29 Dose: 25 mcg Lisinopril (Zestril) 5 mg PO DAILY [facility] Last Admin: 02/09/17 11:45 Dose: Not Given Metoprolol Succinate (Toprol Xl) 25 mg PO DAILY [facility] Last Admin: 02/09/17 11:44 Dose: Not Given Pantoprazole Sodium (Protonix Ec Tab) 40 mg PO DAILY [facility] Last Admin: 02/09/17 11:44 Dose: Not Given - Labs Labs: 02/09/17 17:05 02/07/17 17:50 PT 11.2 SECONDS (9.7-12.2) 02/07/17 00:59 INR 1.0 02/07/17 00:59 APTT 34 SECONDS (21-34) 02/07/17 00:59
--- NOTE | 2017-02-10 02:09 | US ---
HISTORY: elevated LFTs COMPARISON: None. TECHNIQUE: Sonographic evaluation of the abdomen. FINDINGS: LIVER: Measures 13.6 cm. Normal echogenicity of the liver parenchyma. No mass. No intrahepatic bile duct dilatation. GALLBLADDER: Unremarkable. No gallstones. COMMON BILE DUCT: Measures 3-4 mm. No stones. No dilatation. PANCREAS: Pancreas was not adequately identified on this examination due to overlying bowel gas and body habitus. RIGHT KIDNEY: Measures 10.3cm. Normal echogenicity. No calculus, mass, or hydronephrosis. Small right renal cyst is noted measuring 1.6 centimeters x 1.5 centimeters. LEFT KIDNEY: Measures 10.7cm. Normal echogenicity. No calculus, mass, or hydronephrosis. SPLEEN: Normal in size and contour. No mass. AORTA: No aneurysmal dilatation. IVC: Unremarkable. OTHER FINDINGS: No sonographic Morales's sign. IMPRESSION: Small right renal cyst. No evidence of gallstones or gallbladder wall thickening. Nonvisualization of the pancreas.
[2017-02-10] MEDS: metroNIDAZOLE IV 500 mg/100 ml 500 MG/100 ML BAG IVPB SCH ×2 (03:12→17:08)
[2017-02-10] MEDS: Levothyroxine 25 MCG TAB PO SCH (05:45)
[2017-02-10 06:22] LABS: BASO % 0.5 % (0.0-2.0); EOS # 0.1 K/uL (0.0-0.7); EOS % 1.7 % (0.0-4.0); HEMATOCRIT 38.7 % (35.0-51.0); LYMPH # 1.1 K/uL (1.0-4.3); LYMPH % 25.2 % (20.0-40.0); MEAN CELL VOLUME 82.8 fL (80.0-94.0); MEAN CORPUSCULAR HGB CONC 33.8 g/dL (33.0-37.0); MEAN PLATELET VOLUME 9.6 fL (7.2-11.7); MONO # 0.4 K/uL (0.0-0.8); MONO % 8.4 % (0.0-10.0); RED CELL DISTRIBUTION WIDTH 13.7 % (11.5-14.5); WHITE BLOOD COUNT 4.5 K/uL (4.8-10.8)
[2017-02-10 06:34] LABS: CHLORIDE 97 mmol/L (98-107); POTASSIUM 4.1 mmol/L (3.6-5.2); SODIUM 134 mmol/L (132-148)
[2017-02-10 06:36] LABS: GFR AFRICAN-AMERICAN > 60
[2017-02-10 06:37] LABS: ALB/GLOB RATIO 1.4 (1.0-2.1); ALKALINE PHOSPHATASE 46 U/L (38-126); ALT/SGPT 58 U/L (21-72); AST/SGOT 30 U/L (17-59); BILIRUBIN,TOTAL 0.7 mg/dL (0.2-1.3); BLOOD UREA NITROGEN 17 mg/dL (9-20); CALCIUM 8.4 mg/dl (8.6-10.4); CARBON DIOXIDE 29 mmol/L (22-30); GLUCOSE,RANDOM 300 mg/dL (75-110); TOTAL PROTEIN 5.9 g/dL (6.3-8.3)
[2017-02-10] MEDS: (Novolin R) Insulin Human Regular 100 units/ml vial SC SCH ×4 (07:51→21:34)
[2017-02-10] MEDS: Metoprolol Succinate 25 mg XL Tab PO SCH (08:59)
[2017-02-10] MEDS: Pantoprazole 40 mg EC Tab PO SCH (08:59)
[2017-02-10] MEDS: Insulin Detemir 100 units/ml Vial (Levemir) SC SCH ×2 (10:00→21:34)
--- NOTE | 2017-02-10 11:27 | CP.PCM.PN ---
Subjective - Date & Time of Evaluation Date of Evaluation: 02/10/17 Time of Evaluation: 09:00 - Subjective Subjective: PGY2 on medicine Dr. Gonzales service: Pt seen and examined at bedside this morning. No events overnight and currently no complaints. NPO for thallium viability study. Objective - Vital Signs/Intake and Output Vital Signs (last 24 hours): Temp Pulse Resp BP Pulse Ox 97.5 F L 64 20 111/71 100 02/10/17 07:00 02/10/17 07:00 02/10/17 07:00 02/10/17 07:00 02/10/17 07:00 Intake and Output: 02/10/17 02/10/17 06:59 18:59 Intake Total 550 Balance 550 - Medications Medications: Current Medications Acetaminophen (Tylenol 325mg Tab) 650 mg PO Q6 PRN PRN Reason: Pain, moderate (4-7) Aspirin (Aspirin) 325 mg PO DAILY [facility] Last Admin: 02/10/17 08:59 Dose: 325 mg Ciprofloxacin (Cipro 400mg/200ml Dsw) 400 mg in 200 mls @ 133 mls/hr IVPB Q12H [facility] Last Admin: 02/09/17 22:33 Dose: 133 mls/hr Metronidazole (Flagyl) 500 mg in 100 mls @ 100 mls/hr IVPB Q12H [facility] Last Admin: 02/10/17 03:12 Dose: 100 mls/hr Sodium Chloride (Sodium Chloride 0.9%) 1,000 mls @ 50 mls/hr IV .Q20H [facility] Stop: 02/10/17 12:00 Last Admin: 02/09/17 17:27 Dose: 50 mls/hr Insulin Detemir (Levemir) 35 unit SC Q12 [facility] Last Admin: 02/09/17 22:39 Dose: 35 unit Insulin Human Regular (Novolin R) 0 unit SC ACHS [facility] PRN Reason: Protocol Last Admin: 02/10/17 07:51 Dose: 3 unit Levothyroxine Sodium (Synthroid) 25 mcg PO DAILY@0630 [facility] Last Admin: 02/10/17 05:45 Dose: 25 mcg Lisinopril (Zestril) 5 mg PO DAILY [facility] Last Admin: 02/10/17 08:59 Dose: 5 mg Metoprolol Succinate (Toprol Xl) 25 mg PO DAILY [facility] Last Admin: 02/10/17 08:59 Dose: 25 mg Pantoprazole Sodium (Protonix Ec Tab) 40 mg PO DAILY [facility] Last Admin: 02/10/17 08:59 Dose: 40 mg - Labs Labs: 02/10/17 06:03 02/10/17 06:03 PT 11.2 SECONDS (9.7-12.2) 02/07/17 00:59 INR 1.0 02/07/17 00:59 APTT 34 SECONDS (21-34) 02/07/17 00:59 - Constitutional Appears: Non-toxic, No Acute Distress - Head Exam Head Exam: NORMOCEPHALIC - Eye Exam Eye Exam: Normal appearance - Respiratory Exam Respiratory Exam: Clear to Ausculation Bilateral, NORMAL BREATHING PATTERN - Cardiovascular Exam Cardiovascular Exam: REGULAR RHYTHM, +S1, +S2. absent: Gallop, Rubs - GI/Abdominal Exam GI & Abdominal Exam: Soft, Normal Bowel Sounds - Neurological Exam Neurological Exam: Alert, Awake, Oriented x3 - Psychiatric Exam Psychiatric exam: Normal Mood - Skin Skin Exam: Intact Assessment and Plan - Assessment and Plan (Free Text) Assessment: CHF Cardio Dr. Gong consulted, help appreciated. ASA 325mg PO daily. Lisinopril 5mg PO daily. TOprol XL 25mg PO daily. S/P abnormal stress test. S/P cath which showed EF 25-30% (40-45% on 2015 ECHO) and [address] Eckert consulted for LifeVest placement. F/U Thallium viability study. DM Levemir 35U SC q12H [facility], accuchecks. Hypothyroidism SYnthroid 25mcg PO daily. Elevated LFT and sigmoid thickening Cipro and Flagyl stopped per GI. GI Dr. Calhoun consulted, help appreciated. Will f/u outpatient. Prophylactic measure Protonix, SCD. Management as per Dr. Gonzales
--- NOTE | 2017-02-10 11:37 | CP.PCM.PN ---
<Evens Finnegan - Last Filed: 02/10/17 11:32> Subjective - Date & Time of Evaluation Date of Evaluation: 02/10/17 Time of Evaluation: 07:30 - Subjective Subjective: Cardiology Progress Note Dr. Eckert Patient seen and examined at bedside. No acute complaints. No acute events overnight. Sitting comfortably on edge of bed at time of exam today. Denies chest pain, shortness of breath, sensation of LLE swelling/squeezing, or lightheadedness/dizziness. denies any other cardiovascular complaint. 12- point ROS obtained and negative except as above. Objective - Vital Signs/Intake and Output Vital Signs (last 24 hours): Temp Pulse Resp BP Pulse Ox 97.5 F L 64 20 111/71 100 02/10/17 07:00 02/10/17 07:00 02/10/17 07:00 02/10/17 07:00 02/10/17 07:00 Intake and Output: 02/10/17 02/10/17 06:59 18:59 Intake Total 550 Balance 550 - Medications Medications: Current Medications Acetaminophen (Tylenol 325mg Tab) 650 mg PO Q6 PRN PRN Reason: Pain, moderate (4-7) Aspirin (Aspirin) 325 mg PO DAILY [facility] Last Admin: 02/10/17 08:59 Dose: 325 mg Metronidazole (Flagyl) 500 mg in 100 mls @ 100 mls/hr IVPB Q12H [facility] Last Admin: 02/10/17 03:12 Dose: 100 mls/hr Sodium Chloride (Sodium Chloride 0.9%) 1,000 mls @ 50 mls/hr IV .Q20H [facility] Stop: 02/10/17 12:00 Last Admin: 02/09/17 17:27 Dose: 50 mls/hr Insulin Detemir (Levemir) 35 unit SC Q12 [facility] Last Admin: 02/09/17 22:39 Dose: 35 unit Insulin Human Regular (Novolin R) 0 unit SC ACHS [facility] PRN Reason: Protocol Last Admin: 02/10/17 07:51 Dose: 3 unit Levothyroxine Sodium (Synthroid) 25 mcg PO DAILY@0630 [facility] Last Admin: 02/10/17 05:45 Dose: 25 mcg Lisinopril (Zestril) 5 mg PO DAILY [facility] Last Admin: 05/24/17 08:59 Dose: 5 mg Pantoprazole Sodium (Protonix Ec Tab) 40 mg PO DAILY [facility] Last Admin: 02/10/17 08:59 Dose: 40 mg - Labs Labs: 02/10/17 06:03 02/10/17 06:03 PT 11.2 SECONDS (9.7-12.2) 02/07/17 00:59 INR 1.0 02/07/17 00:59 APTT 34 SECONDS (21-34) 02/07/17 00:59 - Additional Findings Additional findings: - Constitutional Appears: Well, Non-toxic, No Acute Distress - Head Exam Head Exam: ATRAUMATIC, NORMAL INSPECTION, NORMOCEPHALIC - Eye Exam Eye Exam: EOMI, Normal appearance. absent: Conjunctival injection, Scleral icterus Pupil Exam: absent: Irregular, Unequal - ENT Exam ENT Exam: Mucous Membranes Moist - Neck Exam Neck exam: Positive for: Full Rom - Respiratory Exam Respiratory Exam: Clear to Auscultation Bilateral, NORMAL BREATHING PATTERN. absent: Accessory Muscle Use, Chest Wall Tenderness, Decreased Breath Sounds, Rales, Rhonchi, Wheezes - Cardiovascular Exam Cardiovascular Exam: REGULAR RHYTHM, RRR, +S1, +S2. absent: Bradycardia, Tachycardia, Irregular Rhythm, +S4 - GI/Abdominal Exam GI & Abdominal Exam: Normal Bowel Sounds, Soft. absent: Diminished Bowel Sounds , Hyperactive Bowel Sounds, Hypoactive Bowel Sounds, Tenderness - Extremities Exam Extremities exam: Bandaging at site of LLE femoral canulation access without oozing/bleeding from site, no tenderness of site to palpation or surrounding swelling/hematoma. Negative for: calf tenderness, pedal edema, tenderness - Neurological Exam Neurological exam: Alert, Awake, Oriented x3 - Psychiatric Exam Psychiatric exam: Normal Affect, Normal Mood - Skin Skin Exam: Dry, Intact (except at LLE groin femoral cannulation site), Normal Color, Warm Assessment and Plan (1) Decreased cardiac ejection fraction Assessment & Plan: EKG 02/07/17: Sinus rhythm at 71, 1st degree AV block with [place] 222, Possible Left atrial enlargement, Right bundle branch block, Left anterior fascicular block, * Bifascicular block Anterolateral infarct (age undetermined), Abnormal ECG Echo 02/07/17: Severely dilated LV with normal wall thickness, EF 25-30%, ischemic cardiomyopathy, Akinesia of inferoapical/apical/anteroapical segements , no mural clots, Grade-II pseudonormal filling, moderately elevated LAP, Mild AR, Moderate MR Stress test 02/08/17: Abnormal stress test, large anterior and apical defects suggestive of scar and old [place] Cardiac Cath 02/09/17: pending official report, 2-vessel disease, confirmed EF 25 -30% -Dilated and ischemic cardiomyopathy, EF 25-30% -At risk for sudden cardiac , will need pacing -Life Vest ordered, rep contacted to see patient today -Continue current medical management as per primary Cardio (Dr. Gong) Status: Acute - Assessment and Plan (Free Text) Assessment: Case discussed with Dr. Eckert. <Em Eckert - Last Filed: 02/10/17 13:21> Objective - Vital Signs/Intake and Output Vital Signs (last 24 hours): Temp Pulse Resp BP Pulse Ox 97.5 F L 64 20 111/71 100 02/10/17 07:00 02/10/17 07:00 02/10/17 07:00 02/10/17 07:00 02/10/17 07:00 Intake and Output: 02/10/17 02/10/17 06:59 18:59 Intake Total 550 Balance 550 - Medications Medications: Current Medications Acetaminophen (Tylenol 325mg Tab) 650 mg PO Q6 PRN PRN Reason: Pain, moderate (4-7) Aspirin (Aspirin) 325 mg PO DAILY [facility] Last Admin: 02/10/17 08:59 Dose: 325 mg Metronidazole (Flagyl) 500 mg in 100 mls @ 100 mls/hr IVPB Q12H [facility] Last Admin: 02/10/17 03:12 Dose: 100 mls/hr Insulin Detemir (Levemir) 35 unit SC Q12 [facility] Last Admin: 02/10/17 10:00 Dose: Not Given Insulin Human Regular (Novolin R) 0 unit SC ACHS [facility] PRN Reason: Protocol Last Admin: 02/10/17 12:15 Dose: 3 unit Levothyroxine Sodium (Synthroid) 25 mcg PO DAILY@0630 [facility] Last Admin: 02/10/17 05:45 Dose: 25 mcg Lisinopril (Zestril) 5 mg PO DAILY [facility] Last Admin: 02/10/17 08:59 Dose: 5 mg Pantoprazole Sodium (Protonix Ec Tab) 40 mg PO DAILY [facility] Last Admin: 02/10/17 08:59 Dose: 40 mg - Labs Labs: 02/10/17 06:03 02/10/17 06:03 PT 11.2 SECONDS (9.7-12.2) 02/07/17 00:59 INR 1.0 02/07/17 00:59 APTT 34 SECONDS (21-34) 02/07/17 00:59 Attending/Attestation - Attestation I have personally seen and examined this patient.: Yes I have fully participated in the care of the patient.: Yes I have reviewed all pertinent clinical information, including history, physical exam and plan: Yes Notes (Text): 02/10/17 13:20 Pt no cp will arrange vest all questions answered
--- NOTE | 2017-02-10 14:35 | CP.PCM.PN ---
<Abena Oquendo - Last Filed: 02/10/17 14:32> Subjective - Date & Time of Evaluation Date of Evaluation: 02/10/17 Time of Evaluation: 14:32 - Subjective Subjective: PGY-[address] Gong Pt seen and examined. No acute complaint per 12 point review Objective - Vital Signs/Intake and Output Vital Signs (last 24 hours): Temp Pulse Resp BP Pulse Ox 97.5 F L 61 20 111/71 100 02/10/17 07:00 02/10/17 14:00 02/10/17 07:00 02/10/17 07:00 02/10/17 07:00 Intake and Output: 02/10/17 02/10/17 06:59 18:59 Intake Total 550 900 Balance 550 900 - Medications Medications: Current Medications Acetaminophen (Tylenol 325mg Tab) 650 mg PO Q6 PRN PRN Reason: Pain, moderate (4-7) Aspirin (Aspirin) 325 mg PO DAILY [facility] Last Admin: 02/10/17 08:59 Dose: 325 mg Metronidazole (Flagyl) 500 mg in 100 mls @ 100 mls/hr IVPB Q12H [facility] Last Admin: 02/10/17 03:12 Dose: 100 mls/hr Insulin Detemir (Levemir) 35 unit SC Q12 [facility] Last Admin: 02/10/17 10:00 Dose: Not Given Insulin Human Regular (Novolin R) 0 unit SC ACHS [facility] PRN Reason: Protocol Last Admin: 02/10/17 12:15 Dose: 3 unit Levothyroxine Sodium (Synthroid) 25 mcg PO DAILY@0630 [facility] Last Admin: 02/10/17 05:45 Dose: 25 mcg Lisinopril (Zestril) 5 mg PO DAILY [facility] Last Admin: 02/10/17 08:59 Dose: 5 mg Pantoprazole Sodium (Protonix Ec Tab) 40 mg PO DAILY [facility] Last Admin: 02/10/17 08:59 Dose: 40 mg - Labs Labs: 02/10/17 06:03 02/10/17 06:03 PT 11.2 SECONDS (9.7-12.2) 02/07/17 00:59 INR 1.0 02/07/17 00:59 APTT 34 SECONDS (21-34) 02/07/17 00:59 - Constitutional Appears: No Acute Distress - Head Exam Head Exam: ATRAUMATIC, NORMOCEPHALIC - Eye Exam Eye Exam: EOMI, Normal appearance, PERRL Pupil Exam: NORMAL ACCOMODATION - ENT Exam ENT Exam: Mucous Membranes Moist - Respiratory Exam Respiratory Exam: Clear to Ausculation Bilateral, NORMAL BREATHING PATTERN. absent: Rales, Rhonchi, Wheezes - Cardiovascular Exam Cardiovascular Exam: REGULAR RHYTHM, +S1, +S2. absent: Murmur - GI/Abdominal Exam GI & Abdominal Exam: Soft, Normal Bowel Sounds. absent: Rigid - Extremities Exam Extremities Exam: Normal Capillary Refill. absent: Calf Tenderness, Pedal Edema - Neurological Exam Neurological Exam: Alert, Awake, Oriented x3 - Psychiatric Exam Psychiatric exam: Normal Affect, Normal Mood - Skin Skin Exam: Dry, Warm Assessment and Plan - Assessment and Plan (Free Text) Plan: 57 M with PMH for DM2, HTN, CAD, Hypothyroid, HLD, Systolic CHF (LVEF 30%), and family hx of sudden cardiac admitted for chest pain and shortness of breath. Echo was obtained and his newly decreased EF was determined, so a stress test was obtained, which came back abnormal, so pt underwent cardiac cath , which confirmed the low EF and discovered triple vessel disease, LVEF 30%. Dr. Eckert was consulted for a Life Vest given the low EF and risk for sudden cardiac . Thallium viability study in am, will finish by tomorrow evening. Then will discuss re: CABG vs high risk PCI S/R/D/w Dr. Gong <Maximilian Gong - Last Filed: 02/11/17 05:06> Objective - Vital Signs/Intake and Output Vital Signs (last 24 hours): Temp Pulse Resp BP Pulse Ox 98.0 F 59 L 20 105/66 99 02/10/17 23:55 02/10/17 23:55 02/10/17 23:55 02/10/17 23:55 02/10/17 23:55 Intake and Output: 02/10/17 02/11/17 18:59 06:59 Intake Total 900 Balance 900 - Medications Medications: Current Medications Acetaminophen (Tylenol 325mg Tab) 650 mg PO Q6 PRN PRN Reason: Pain, moderate (4-7) Aspirin (Aspirin) 325 mg PO DAILY [facility] Last Admin: 02/10/17 08:59 Dose: 325 mg Metronidazole (Flagyl) 500 mg in 100 mls @ 100 mls/hr IVPB Q12H [facility] Last Admin: 02/11/17 04:07 Dose: 100 mls/hr Insulin Detemir (Levemir) 35 unit SC Q12 [facility] Last Admin: 02/10/17 21:34 Dose: 35 unit Insulin Human Regular (Novolin R) 0 unit SC ACHS [facility] PRN Reason: Protocol Last Admin: 02/10/17 21:34 Dose: 3 unit Levothyroxine Sodium (Synthroid) 25 mcg PO DAILY@0630 [facility] Last Admin: 02/10/17 05:45 Dose: 25 mcg Lisinopril (Zestril) 5 mg PO DAILY [facility] Last Admin: 02/10/17 08:59 Dose: 5 mg Pantoprazole Sodium (Protonix Ec Tab) 40 mg PO DAILY [facility] Last Admin: 02/10/17 08:59 Dose: 40 mg - Labs Labs: 02/10/17 06:03 02/10/17 06:03 PT 11.2 SECONDS (9.7-12.2) 02/07/17 00:59 INR 1.0 02/07/17 00:59 APTT 34 SECONDS (21-34) 02/07/17 00:59 Assessment and Plan - Assessment and Plan (Free Text) Assessment: Patient seen and evaluated D/W patient, his and [id number] at bedside Awaiting Thallium viability study results
--- NOTE | 2017-02-10 18:48 | CP.PCM.PN ---
Subjective - Date & Time of Evaluation Date of Evaluation: 02/10/17 Time of Evaluation: 12:20 - Subjective Subjective: clinically same Objective - Vital Signs/Intake and Output Vital Signs (last 24 hours): Temp Pulse Resp BP Pulse Ox 98.3 F 63 20 109/65 99 02/10/17 16:30 02/10/17 16:30 02/10/17 16:30 02/10/17 16:30 02/10/17 16:30 Intake and Output: 02/10/17 02/10/17 06:59 18:59 Intake Total 550 900 Balance 550 900 - Medications Medications: Current Medications Acetaminophen (Tylenol 325mg Tab) 650 mg PO Q6 PRN PRN Reason: Pain, moderate (4-7) Aspirin (Aspirin) 325 mg PO DAILY [facility] Last Admin: 02/10/17 08:59 Dose: 325 mg Metronidazole (Flagyl) 500 mg in 100 mls @ 100 mls/hr IVPB Q12H [facility] Last Admin: 02/10/17 17:08 Dose: 100 mls/hr Insulin Detemir (Levemir) 35 unit SC Q12 [facility] Last Admin: 02/10/17 10:00 Dose: Not Given Insulin Human Regular (Novolin R) 0 unit SC ACHS [facility] PRN Reason: Protocol Last Admin: 02/10/17 17:09 Dose: 3 unit Levothyroxine Sodium (Synthroid) 25 mcg PO DAILY@0630 [facility] Last Admin: 02/10/17 05:45 Dose: 25 mcg Lisinopril (Zestril) 5 mg PO DAILY [facility] Last Admin: 02/10/17 08:59 Dose: 5 mg Pantoprazole Sodium (Protonix Ec Tab) 40 mg PO DAILY [facility] Last Admin: 02/10/17 08:59 Dose: 40 mg - Labs Labs: 02/10/17 06:03 02/10/17 06:03 PT 11.2 SECONDS (9.7-12.2) 02/07/17 00:59 INR 1.0 02/07/17 00:59 APTT 34 SECONDS (21-34) 02/07/17 00:59 - Constitutional Appears: Well - Head Exam Head Exam: ATRAUMATIC, NORMAL INSPECTION, NORMOCEPHALIC - Eye Exam Eye Exam: EOMI, Normal appearance, PERRL Pupil Exam: NORMAL ACCOMODATION, PERRL - ENT Exam ENT Exam: Mucous Membranes Moist, Normal Exam - Neck Exam Neck Exam: Full ROM, Normal Inspection. absent: Lymphadenopathy - Respiratory Exam Respiratory Exam: Decreased Breath Sounds - Cardiovascular Exam Cardiovascular Exam: REGULAR RHYTHM, +S1, +S2 - GI/Abdominal Exam GI & Abdominal Exam: Soft, Diminished Bowel Sounds - Rectal Exam Rectal Exam: Deferred Assessment and Plan (1) Chest pain Status: Acute (2) Decreased cardiac ejection fraction Status: Acute (3) Elevated liver enzymes Status: Acute (4) CAD (coronary artery disease) Status: Acute (5) Diabetes Status: Acute (6) Syncope Status: Acute - Assessment and Plan (Free Text) Plan: Follow-up cardiology Follow-up GI S/P cardiac cath LV EF 30% two vessel disease Life vest ordered Awaiting thallium viability study results Continue management as ordered
[2017-02-10] MEDS ORDERED: (Novolin R) Insulin Human Regular 100 units/ml vial SC ONE (21:49)
[2017-02-10] MEDS: Sodium Chloride 0.9% 1,000 ML IV SCH (22:01)
[2017-02-11] MEDS: metroNIDAZOLE IV 500 mg/100 ml 500 MG/100 ML BAG IVPB SCH ×2 (04:07→16:00)
[2017-02-11] MEDS: Levothyroxine 25 MCG TAB PO SCH (06:18)
[2017-02-11 08:00] LABS: BASO % 0.7 % (0.0-2.0); EOS # 0.1 K/uL (0.0-0.7); EOS % 2.8 % (0.0-4.0); HEMATOCRIT 38.6 % (35.0-51.0); LYMPH # 1.1 K/uL (1.0-4.3); LYMPH % 29.7 % (20.0-40.0); MEAN CELL VOLUME 82.7 fL (80.0-94.0); MEAN CORPUSCULAR HEMOGLOBIN 27.7 pg (27.0-31.0); MEAN CORPUSCULAR HGB CONC 33.5 g/dL (33.0-37.0); MEAN PLATELET VOLUME 9.1 fL (7.2-11.7); MONO # 0.3 K/uL (0.0-0.8); MONO % 8.6 % (0.0-10.0); RED CELL DISTRIBUTION WIDTH 13.6 % (11.5-14.5); WHITE BLOOD COUNT 3.9 K/uL (4.8-10.8)
[2017-02-11] MEDS: (Novolin R) Insulin Human Regular 100 units/ml vial SC SCH ×4 (08:08→21:40)
[2017-02-11 08:10] LABS: CHLORIDE 99 mmol/L (98-107)
[2017-02-11 08:11] LABS: POTASSIUM 3.8 mmol/L (3.6-5.2); SODIUM 135 mmol/L (132-148)
[2017-02-11 08:15] LABS: ALB/GLOB RATIO 1.3 (1.0-2.1); ALKALINE PHOSPHATASE 45 U/L (38-126); ALT/SGPT 56 U/L (21-72); AST/SGOT 40 U/L (17-59); BILIRUBIN,TOTAL 0.5 mg/dL (0.2-1.3); BLOOD UREA NITROGEN 16 mg/dL (9-20); CALCIUM 8.1 mg/dl (8.6-10.4); CARBON DIOXIDE 29 mmol/L (22-30); GFR AFRICAN-AMERICAN > 60; GLUCOSE,RANDOM 169 mg/dL (75-110); TOTAL PROTEIN 5.9 g/dL (6.3-8.3)
--- NOTE | 2017-02-11 09:08 | CP.PCM.PN ---
<Evens Finnegan - Last Filed: 02/11/17 16:57> Subjective - Date & Time of Evaluation Date of Evaluation: 02/11/17 Time of Evaluation: 09:30 - Subjective Subjective: Cardiology Progress Note Dr. Eckert Patient seen and examined at bedside. No acute complaints. No acute events overnight. Sitting comfortably on edge of bed at time of exam today. Denies chest pain, shortness of breath, sensation of LLE swelling/squeezing, or lightheadedness/dizziness. Denies any other cardiovascular complaint. 12- point ROS obtained and negative except as above. Objective - Vital Signs/Intake and Output Vital Signs (last 24 hours): Temp Pulse Resp BP Pulse Ox 98.1 F 56 L 20 119/74 98 02/11/17 07:20 02/11/17 07:20 02/11/17 07:20 02/11/17 07:20 02/11/17 07:20 - Medications Medications: Current Medications Acetaminophen (Tylenol 325mg Tab) 650 mg PO Q6 PRN PRN Reason: Pain, moderate (4-7) Aspirin (Aspirin) 325 mg PO DAILY [facility] Last Admin: 02/10/17 08:59 Dose: 325 mg Metronidazole (Flagyl) 500 mg in 100 mls @ 100 mls/hr IVPB Q12H [facility] Last Admin: 02/11/17 04:07 Dose: 100 mls/hr Insulin Detemir (Levemir) 35 unit SC Q12 [facility] Last Admin: 02/10/17 21:34 Dose: 35 unit Insulin Human Regular (Novolin R) 0 unit SC ACHS [facility] PRN Reason: Protocol Last Admin: 02/11/17 08:08 Dose: 1 unit Levothyroxine Sodium (Synthroid) 25 mcg PO DAILY@0630 [facility] Last Admin: 02/11/17 06:18 Dose: 25 mcg Lisinopril (Zestril) 5 mg PO DAILY [facility] Last Admin: 02/10/17 08:59 Dose: 5 mg Pantoprazole Sodium (Protonix Ec Tab) 40 mg PO DAILY [facility] Last Admin: 02/10/17 08:59 Dose: 40 mg - Labs Labs: 02/11/17 07:53 02/11/17 07:53 PT 11.2 SECONDS (9.7-12.2) 02/07/17 00:59 INR 1.0 02/07/17 00:59 APTT 34 SECONDS (21-34) 02/07/17 00:59 - Additional Findings Additional findings: - Constitutional Appears: Well, Non-toxic, No Acute Distress - Head Exam Head Exam: ATRAUMATIC, NORMAL INSPECTION, NORMOCEPHALIC - Eye Exam Eye Exam: EOMI, Normal appearance. absent: Conjunctival injection, Scleral icterus Pupil Exam: absent: Irregular, Unequal - ENT Exam ENT Exam: Mucous Membranes Moist - Neck Exam Neck exam: Positive for: Full Rom - Respiratory Exam Respiratory Exam: Clear to Auscultation Bilateral, NORMAL BREATHING PATTERN. absent: Accessory Muscle Use, Chest Wall Tenderness, Decreased Breath Sounds, Rales, Rhonchi, Wheezes - Cardiovascular Exam Cardiovascular Exam: REGULAR RHYTHM, RRR, +S1, +S2. absent: Bradycardia, Tachycardia, Irregular Rhythm, +S4 - GI/Abdominal Exam GI & Abdominal Exam: Normal Bowel Sounds, Soft. absent: Diminished Bowel Sounds , Hyperactive Bowel Sounds, Hypoactive Bowel Sounds, Tenderness - Extremities Exam Extremities exam: Bandaging at site of LLE femoral canulation access without oozing/bleeding from site, no tenderness of site to palpation or surrounding swelling/hematoma. Negative for: calf tenderness, pedal edema, tenderness - Neurological Exam Neurological exam: Alert, Awake, Oriented x3 - Psychiatric Exam Psychiatric exam: Normal Affect, Normal Mood - Skin Skin Exam: Dry, Intact (except at LLE groin femoral cannulation site), Normal Color, Warm Assessment and Plan (1) Decreased cardiac ejection fraction Assessment & Plan: EKG 02/07/17: Sinus rhythm at 71, 1st degree AV block with [place] 222, Possible Left atrial enlargement, Right bundle branch block, Left anterior fascicular block, * Bifascicular block Anterolateral infarct (age undetermined), Abnormal ECG Echo 02/07/17: Severely dilated LV with normal wall thickness, EF 25-30%, ischemic cardiomyopathy, [place] of inferoapical/apical/anteroapical segements , no mural clots, Grade-II pseudonormal filling, moderately elevated LAP, Mild AR, Moderate MR Stress test 02/08/17: Abnormal stress test, large anterior and apical defects suggestive of scar and old [place] Cardiac Cath 02/09/17: pending official report, 2-vessel disease, confirmed EF 25 -30% -Dilated and ischemic cardiomyopathy, EF 25-30% -At risk for sudden cardiac , will need pacing -Life Vest ordered, rep contacted -Continue current medical management as per primary Cardio (Dr. Gong) Status: Acute - Assessment and Plan (Free Text) Assessment: Case discussed with Dr. Eckert. <Em Eckert - Last Filed: 02/12/17 10:01> Objective - Vital Signs/Intake and Output Vital Signs (last 24 hours): Temp Pulse Resp BP Pulse Ox 97.7 F 59 L 20 123/72 97 02/12/17 07:20 02/12/17 07:20 02/12/17 07:20 02/12/17 07:20 02/12/17 07:20 Intake and Output: 02/12/17 02/12/17 06:59 18:59 Intake Total 1050 Balance 1050 - Medications Medications: Current Medications Acetaminophen (Tylenol 325mg Tab) 650 mg PO Q6 PRN PRN Reason: Pain, moderate (4-7) Aspirin (Aspirin) 325 mg PO DAILY [facility] Last Admin: 02/11/17 12:00 Dose: 325 mg Metronidazole (Flagyl) 500 mg in 100 mls @ 100 mls/hr IVPB Q12H [facility] Last Admin: 02/12/17 03:37 Dose: 100 mls/hr Insulin Detemir (Levemir) 35 unit SC Q12 [facility] Last Admin: 02/11/17 21:46 Dose: 35 unit Insulin Human Regular (Novolin R) 0 unit SC ACHS [facility] PRN Reason: Protocol Last Admin: 02/12/17 07:36 Dose: 2 unit Levothyroxine Sodium (Synthroid) 25 mcg PO DAILY@0630 [facility] Last Admin: 02/12/17 05:43 Dose: 25 mcg Lisinopril (Zestril) 5 mg PO DAILY [facility] Last Admin: 02/11/17 12:00 Dose: 5 mg Pantoprazole Sodium (Protonix Ec Tab) 40 mg PO DAILY [facility] Last Admin: 02/11/17 12:00 Dose: 40 mg - Labs Labs: 02/12/17 08:10 02/12/17 08:10 PT 11.2 SECONDS (9.7-12.2) 02/07/17 00:59 INR 1.0 02/07/17 00:59 APTT 34 SECONDS (21-34) 02/07/17 00:59 Attending/Attestation - Attestation I have personally seen and examined this patient.: Yes I have fully participated in the care of the patient.: Yes I have reviewed all pertinent clinical information, including history, physical exam and plan: Yes Notes (Text): 02/12/17 10:00 viability negative will alert [facility] for fitting
[2017-02-11] MEDS: Insulin Detemir 100 units/ml Vial (Levemir) SC SCH ×2 (10:00→21:46)
[2017-02-11] MEDS: Pantoprazole 40 mg EC Tab PO SCH (12:00)
--- NOTE | 2017-02-11 16:27 | CP.PCM.PN ---
<Chema Patino - Last Filed: 02/11/17 16:24> Subjective - Date & Time of Evaluation Date of Evaluation: 02/11/17 Time of Evaluation: 09:00 - Subjective Subjective: PGY2 on medicine Dr. Gonzales service: Pt seen and examined at bedside this morning. No acute events overnight and no complaints at the moment. Objective - Vital Signs/Intake and Output Vital Signs (last 24 hours): Temp Pulse Resp BP Pulse Ox 98.1 F 60 20 119/74 98 02/11/17 07:20 02/11/17 15:00 02/11/17 07:20 02/11/17 07:20 02/11/17 07:20 Intake and Output: 02/11/17 02/11/17 06:59 18:59 Intake Total 700 Balance 700 - Medications Medications: Current Medications Acetaminophen (Tylenol 325mg Tab) 650 mg PO Q6 PRN PRN Reason: Pain, moderate (4-7) Aspirin (Aspirin) 325 mg PO DAILY [facility] Last Admin: 02/11/17 12:00 Dose: 325 mg Metronidazole (Flagyl) 500 mg in 100 mls @ 100 mls/hr IVPB Q12H [facility] Last Admin: 02/11/17 04:07 Dose: 100 mls/hr Insulin Detemir (Levemir) 35 unit SC Q12 [facility] Last Admin: 02/11/17 10:00 Dose: Not Given Insulin Human Regular (Novolin R) 0 unit SC ACHS [facility] PRN Reason: Protocol Last Admin: 02/11/17 12:30 Dose: 4 unit Levothyroxine Sodium (Synthroid) 25 mcg PO DAILY@0630 [facility] Last Admin: 02/11/17 06:18 Dose: 25 mcg Lisinopril (Zestril) 5 mg PO DAILY [facility] Last Admin: 02/11/17 12:00 Dose: 5 mg Pantoprazole Sodium (Protonix Ec Tab) 40 mg PO DAILY [facility] Last Admin: 02/11/17 12:00 Dose: 40 mg - Labs Labs: 02/11/17 07:53 02/11/17 07:53 PT 11.2 SECONDS (9.7-12.2) 02/07/17 00:59 INR 1.0 02/07/17 00:59 APTT 34 SECONDS (21-34) 02/07/17 00:59 - Constitutional Appears: Non-toxic, No Acute Distress - Head Exam Head Exam: NORMOCEPHALIC - Eye Exam Eye Exam: Normal appearance Pupil Exam: NORMAL ACCOMODATION - ENT Exam ENT Exam: Mucous Membranes Moist - Respiratory Exam Respiratory Exam: Clear to Ausculation Bilateral, NORMAL BREATHING PATTERN. absent: Rales, Rhonchi - Cardiovascular Exam Cardiovascular Exam: REGULAR RHYTHM, +S1, +S2. absent: Gallop, Rubs - GI/Abdominal Exam GI & Abdominal Exam: Soft, Normal Bowel Sounds. absent: Tenderness - Extremities Exam Additional comments: Left groin dressing intact - Neurological Exam Neurological Exam: Alert, Awake, Oriented x3 - Psychiatric Exam Psychiatric exam: Normal Mood Assessment and Plan - Assessment and Plan (Free Text) Assessment: CHF Cardio Dr. Gong consulted, help appreciated. ASA 325mg PO daily. Lisinopril 5mg PO daily. TOprol XL 25mg PO daily. S/P abnormal stress test. S/P cath which showed EF 25-30% (40-45% on 2014 ECHO) and [address] Eckert consulted for LifeVest placement. F/U Thallium viability study report. DM Levemir 35U SC q12H RISS, accuchecks. Hypothyroidism SYnthroid 25mcg PO daily. Elevated LFT and sigmoid thickening Cipro and Flagyl stopped per GI. GI Dr. Calhoun consulted, help appreciated. Will f/u outpatient. Prophylactic measure Protonix, SCD. Management as per Dr. Gonzales <Megan Gonzales S - Last Filed: 02/11/17 19:04> Objective - Vital Signs/Intake and Output Vital Signs (last 24 hours): Temp Pulse Resp BP Pulse Ox 98.2 F 60 18 139/77 98 02/11/17 16:00 02/11/17 16:00 02/11/17 16:00 02/11/17 16:00 02/11/17 16:00 Intake and Output: 02/11/17 02/12/17 18:59 06:59 Intake Total 700 Balance 700 - Medications Medications: Current Medications Acetaminophen (Tylenol 325mg Tab) 650 mg PO Q6 PRN PRN Reason: Pain, moderate (4-7) Aspirin (Aspirin) 325 mg PO DAILY [facility] Last Admin: 02/11/17 12:00 Dose: 325 mg Metronidazole (Flagyl) 500 mg in 100 mls @ 100 mls/hr IVPB Q12H [facility] Last Admin: 02/11/17 16:00 Dose: 100 mls/hr Insulin Detemir (Levemir) 35 unit SC Q12 [facility] Last Admin: 02/11/17 10:00 Dose: Not Given Insulin Human Regular (Novolin R) 0 unit SC ACHS [facility] PRN Reason: Protocol Last Admin: 02/11/17 17:00 Dose: 4 unit Levothyroxine Sodium (Synthroid) 25 mcg PO DAILY@0630 [facility] Last Admin: 02/11/17 06:18 Dose: 25 mcg Lisinopril (Zestril) 5 mg PO DAILY [facility] Last Admin: 02/11/17 12:00 Dose: 5 mg Pantoprazole Sodium (Protonix Ec Tab) 40 mg PO DAILY [facility] Last Admin: 02/11/17 12:00 Dose: 40 mg - Labs Labs: 02/11/17 07:53 02/11/17 07:53 PT 11.2 SECONDS (9.7-12.2) 02/07/17 00:59 INR 1.0 02/07/17 00:59 APTT 34 SECONDS (21-34) 02/07/17 00:59 Assessment and Plan (1) Chest pain Status: Acute (2) Decreased cardiac ejection fraction Status: Acute (3) Elevated liver enzymes Status: Acute (4) CAD (coronary artery disease) Status: Acute (5) Diabetes Status: Acute (6) Syncope Status: Acute Attending/Attestation - Attestation I have personally seen and examined this patient.: Yes I have fully participated in the care of the patient.: Yes I have reviewed all pertinent clinical information, including history, physical exam and plan: Yes Notes (Text): 02/11/17 19:02 case seen and discussed with staff and resident mx as ordered awating for reoprts
--- NOTE | 2017-02-11 21:46 | CP.PCM.PN ---
Subjective - Date & Time of Evaluation Date of Evaluation: 02/11/17 Time of Evaluation: 18:30 - Subjective Subjective: Patient seen and evaluated Viabilty study negative Medical management For LifeVest/ICD by Dr. Eckert D/W patient and the family Physical Examination - Constitutional Appears: No Acute Distress - Head Exam Head Exam: ATRAUMATIC, NORMOCEPHALIC - Eye Exam Eye Exam: EOMI, Normal appearance, PERRL Pupil Exam: NORMAL ACCOMODATION - ENT Exam ENT Exam: Mucous Membranes Moist - Respiratory Exam Respiratory Exam: Clear to Ausculation Bilateral, NORMAL BREATHING PATTERN. absent: Rales, Rhonchi, Wheezes - Cardiovascular Exam Cardiovascular Exam: REGULAR RHYTHM, +S1, +S2. absent: Murmur - GI/Abdominal Exam GI & Abdominal Exam: Soft, Normal Bowel Sounds. absent: Rigid - Extremities Exam Extremities Exam: Normal Capillary Refill. absent: Calf Tenderness, Pedal Edema - Neurological Exam Neurological Exam: Alert, Awake, Oriented x3 - Psychiatric Exam Psychiatric exam: Normal Affect, Normal Mood - Skin Skin Exam: Dry, Warm Objective - Vital Signs/Intake and Output Vital Signs (last 24 hours): Temp Pulse Resp BP Pulse Ox 98.2 F 60 18 139/77 98 02/11/17 16:00 02/11/17 16:00 02/11/17 16:00 02/11/17 16:00 02/11/17 16:00 Intake and Output: 02/11/17 02/12/17 18:59 06:59 Intake Total 700 Balance 700 - Medications Medications: Current Medications Acetaminophen (Tylenol 325mg Tab) 650 mg PO Q6 PRN PRN Reason: Pain, moderate (4-7) Aspirin (Aspirin) 325 mg PO DAILY [facility] Last Admin: 02/11/17 12:00 Dose: 325 mg Metronidazole (Flagyl) 500 mg in 100 mls @ 100 mls/hr IVPB Q12H [facility] Last Admin: 02/11/17 16:00 Dose: 100 mls/hr Insulin Detemir (Levemir) 35 unit SC Q12 [facility] Last Admin: 02/11/17 10:00 Dose: Not Given Insulin Human Regular (Novolin R) 0 unit SC ACHS [facility] PRN Reason: Protocol Last Admin: 02/11/17 21:40 Dose: Not Given Levothyroxine Sodium (Synthroid) 25 mcg PO DAILY@0630 [facility] Last Admin: 02/11/17 06:18 Dose: 25 mcg Lisinopril (Zestril) 5 mg PO DAILY [facility] Last Admin: 02/11/17 12:00 Dose: 5 mg Pantoprazole Sodium (Protonix Ec Tab) 40 mg PO DAILY [facility] Last Admin: 02/11/17 12:00 Dose: 40 mg - Labs Labs: 02/11/17 07:53 02/11/17 07:53 PT 11.2 SECONDS (9.7-12.2) 02/07/17 00:59 INR 1.0 02/07/17 00:59 APTT 34 SECONDS (21-34) 02/07/17 00:59 Assessment and Plan - Assessment and Plan (Free Text) Assessment: 57 M with PMH for DM2, HTN, CAD, Hypothyroid, HLD, Systolic CHF (LVEF 30%), and family hx of sudden cardiac admitted for chest pain and shortness of breath. Echo was obtained and his newly decreased EF was determined, so a stress test was obtained, which came back abnormal, so pt underwent cardiac cath , which confirmed the low EF and discovered triple vessel disease, LVEF 30%. Dr. Eckert was consulted for a Life Vest given the low EF and risk for sudden cardiac . Thallium viability study negative, CABG or stenting not indicated and useful. Patient to be discharged with lifevest. Need to be on high dose statin, ASA, beta dennys. Outpatient follow up with Dr. Eckert in 1 week. Plan to repeat echo after 3 months to see if candidate for ICD placement Patient will f/u Dr. Eckert for cardiology and Dr. Shashank Gonzales for medicine All the instructions given to patient and family
[2017-02-11] MEDS: Sodium Chloride 0.9% 1,000 ML IV SCH (21:55)
[2017-02-12 02:07] VITALS: RESP 20
[2017-02-12] MEDS: metroNIDAZOLE IV 500 mg/100 ml 500 MG/100 ML BAG IVPB SCH (03:37)
[2017-02-12] MEDS: Levothyroxine 25 MCG TAB PO SCH (05:43)
--- NOTE | 2017-02-12 07:35 | CP.PCM.PN ---
<AzraAbena - Last Filed: 02/12/17 11:31> Subjective - Date & Time of Evaluation Date of Evaluation: 02/12/17 Time of Evaluation: 07:34 - Subjective Subjective: PGY-[address] Gong Pt seen and examined. No acute complaint. life vest fitted Objective - Vital Signs/Intake and Output Vital Signs (last 24 hours): Temp Pulse Resp BP Pulse Ox 97.5 F L 51 L 20 114/70 99 02/12/17 04:20 02/12/17 04:49 02/12/17 04:20 02/12/17 04:20 02/12/17 04:20 Intake and Output: 02/12/17 02/12/17 06:59 18:59 Intake Total 1050 Balance 1050 - Medications Medications: Current Medications Acetaminophen (Tylenol 325mg Tab) 650 mg PO Q6 PRN PRN Reason: Pain, moderate (4-7) Aspirin (Aspirin) 325 mg PO DAILY [facility] Last Admin: 02/11/17 12:00 Dose: 325 mg Metronidazole (Flagyl) 500 mg in 100 mls @ 100 mls/hr IVPB Q12H [facility] Last Admin: 02/12/17 03:37 Dose: 100 mls/hr Insulin Detemir (Levemir) 35 unit SC Q12 [facility] Last Admin: 02/11/17 21:46 Dose: 35 unit Insulin Human Regular (Novolin R) 0 unit SC ACHS [facility] PRN Reason: Protocol Last Admin: 02/11/17 21:40 Dose: Not Given Levothyroxine Sodium (Synthroid) 25 mcg PO DAILY@0630 [facility] Last Admin: 02/12/17 05:43 Dose: 25 mcg Lisinopril (Zestril) 5 mg PO DAILY [facility] Last Admin: 02/11/17 12:00 Dose: 5 mg Pantoprazole Sodium (Protonix Ec Tab) 40 mg PO DAILY [facility] Last Admin: 02/11/17 12:00 Dose: 40 mg - Labs Labs: 02/11/17 07:53 02/11/17 07:53 PT 11.2 SECONDS (9.7-12.2) 02/07/17 00:59 INR 1.0 02/07/17 00:59 APTT 34 SECONDS (21-34) 02/07/17 00:59 - Constitutional Appears: No Acute Distress - Head Exam Head Exam: ATRAUMATIC, NORMOCEPHALIC - Eye Exam Eye Exam: EOMI, Normal appearance, PERRL Pupil Exam: NORMAL ACCOMODATION, PERRL - ENT Exam ENT Exam: Mucous Membranes Moist - Neck Exam Additional comments: No carotid bruit - Respiratory Exam Respiratory Exam: Clear to Ausculation Bilateral, NORMAL BREATHING PATTERN. absent: Rales, Rhonchi, Wheezes - Cardiovascular Exam Cardiovascular Exam: REGULAR RHYTHM, +S1, +S2. absent: Murmur - GI/Abdominal Exam GI & Abdominal Exam: Soft, Normal Bowel Sounds. absent: Tenderness - Extremities Exam Extremities Exam: Normal Capillary Refill. absent: Calf Tenderness, Pedal Edema - Neurological Exam Neurological Exam: Alert, Awake, Oriented x3 - Psychiatric Exam Psychiatric exam: Normal Affect, Normal Mood - Skin Skin Exam: Dry, Warm Assessment and Plan - Assessment and Plan (Free Text) Plan: 57 M with PMH for DM2, HTN, CAD, Hypothyroid, HLD, Systolic CHF (LVEF 30%), and family hx of sudden cardiac admitted for chest pain and shortness of breath. Echo was obtained and his newly decreased EF was determined, so a stress test was obtained, which came back abnormal, so pt underwent cardiac cath , which confirmed the low EF and discovered triple vessel disease, LVEF 30%. Dr. Eckert was consulted for a Life Vest given the low EF and risk for sudden cardiac . Thallium viability study negative, no plan for CABG. If possible, pt discharge with lifevest. Need to be on high dose statin, ASA, beta dennys. Outpatient follow up with Dr. Eckert in 1 week. Plan to repeat echo after 3 months to see if candidate for ICD placement S/D/R/ w Dr. Gong <Maximilian Gong - Last Filed: 02/12/17 22:42> Objective - Vital Signs/Intake and Output Vital Signs (last 24 hours): Temp Pulse Resp BP Pulse Ox 97.7 F 59 L 20 123/72 97 02/12/17 07:20 02/12/17 07:20 02/12/17 07:20 02/12/17 07:20 02/12/17 07:20 Intake and Output: 02/12/17 02/13/17 18:59 06:59 Intake Total 400 Balance 400 - Labs Labs: 02/12/17 08:10 02/12/17 08:10 PT 11.2 SECONDS (9.7-12.2) 02/07/17 00:59 INR 1.0 02/07/17 00:59 APTT 34 SECONDS (21-34) 02/07/17 00:59 Assessment and Plan - Assessment and Plan (Free Text) Assessment: Patient seen and evaluated Agree with the reilly
[2017-02-12] MEDS: (Novolin R) Insulin Human Regular 100 units/ml vial SC SCH ×2 (07:36→11:55)
[2017-02-12 08:14] LABS: BASO % 0.9 % (0.0-2.0); EOS # 0.1 K/uL (0.0-0.7); EOS % 2.6 % (0.0-4.0); HEMATOCRIT 38.1 % (35.0-51.0); LYMPH # 1.2 K/uL (1.0-4.3); LYMPH % 29.2 % (20.0-40.0); MEAN CELL VOLUME 83.2 fL (80.0-94.0); MEAN CORPUSCULAR HEMOGLOBIN 27.8 pg (27.0-31.0); MEAN CORPUSCULAR HGB CONC 33.4 g/dL (33.0-37.0); MEAN PLATELET VOLUME 9.1 fL (7.2-11.7); MONO # 0.3 K/uL (0.0-0.8); MONO % 7.6 % (0.0-10.0); RED CELL DISTRIBUTION WIDTH 13.5 % (11.5-14.5); WHITE BLOOD COUNT 4.2 K/uL (4.8-10.8)
[2017-02-12 08:24] VITALS: BP 123/72; PULSE 59; TEMP 97.7; O2SAT 97
[2017-02-12 08:24] LABS: CHLORIDE 98 mmol/L (98-107)
[2017-02-12 08:25] LABS: POTASSIUM 4.3 mmol/L (3.6-5.2); SODIUM 135 mmol/L (132-148)
[2017-02-12 08:27] LABS: ALB/GLOB RATIO 1.3 (1.0-2.1); ALKALINE PHOSPHATASE 43 U/L (38-126); AST/SGOT 42 U/L (17-59); BILIRUBIN,TOTAL 0.6 mg/dL (0.2-1.3); BLOOD UREA NITROGEN 18 mg/dL (9-20); CARBON DIOXIDE 29 mmol/L (22-30); GFR AFRICAN-AMERICAN > 60; GLUCOSE,RANDOM 181 mg/dL (75-110); TOTAL PROTEIN 6.1 g/dL (6.3-8.3)
[2017-02-12 08:28] LABS: ALT/SGPT 55 U/L (21-72); CALCIUM 8.3 mg/dl (8.6-10.4)
--- NOTE | 2017-02-12 09:48 | CP.PCM.PN ---
<Sarabjit Carreon - Last Filed: 02/12/17 12:55> Subjective - Date & Time of Evaluation Date of Evaluation: 02/12/17 Time of Evaluation: 07:10 - Subjective Subjective: Medicine Note- Dr. Gonzales's service Patient was seen and examined at bedside. Patient reports no acute complaints at this time, no events overnight. Objective - Vital Signs/Intake and Output Vital Signs (last 24 hours): Temp Pulse Resp BP Pulse Ox 97.7 F 59 L 20 123/72 97 02/12/17 07:20 02/12/17 07:20 02/12/17 07:20 02/12/17 07:20 02/12/17 07:20 Intake and Output: 02/12/17 02/12/17 06:59 18:59 Intake Total 1050 Balance 1050 - Medications Medications: Current Medications Acetaminophen (Tylenol 325mg Tab) 650 mg PO Q6 PRN PRN Reason: Pain, moderate (4-7) Aspirin (Aspirin) 325 mg PO DAILY [facility] Last Admin: 02/11/17 12:00 Dose: 325 mg Metronidazole (Flagyl) 500 mg in 100 mls @ 100 mls/hr IVPB Q12H [facility] Last Admin: 02/12/17 03:37 Dose: 100 mls/hr Insulin Detemir (Levemir) 35 unit SC Q12 [facility] Last Admin: 02/11/17 21:46 Dose: 35 unit Insulin Human Regular (Novolin R) 0 unit SC ACHS [facility] PRN Reason: Protocol Last Admin: 02/12/17 07:36 Dose: 2 unit Levothyroxine Sodium (Synthroid) 25 mcg PO DAILY@0630 [facility] Last Admin: 02/12/17 05:43 Dose: 25 mcg Lisinopril (Zestril) 5 mg PO DAILY [facility] Last Admin: 02/11/17 12:00 Dose: 5 mg Pantoprazole Sodium (Protonix Ec Tab) 40 mg PO DAILY [facility] Last Admin: 02/11/17 12:00 Dose: 40 mg - Labs Labs: 02/12/17 08:10 02/12/17 08:10 PT 11.2 SECONDS (9.7-12.2) 02/07/17 00:59 INR 1.0 02/07/17 00:59 APTT 34 SECONDS (21-34) 02/07/17 00:59 - Constitutional Appears: Non-toxic, No Acute Distress - Head Exam Head Exam: ATRAUMATIC, NORMAL INSPECTION, NORMOCEPHALIC - Eye Exam Pupil Exam: NORMAL ACCOMODATION, PERRL - ENT Exam ENT Exam: Mucous Membranes Moist - Respiratory Exam Respiratory Exam: Clear to Ausculation Bilateral, NORMAL BREATHING PATTERN. absent: Prolonged Expiratory Phase, Rales, Rhonchi, Wheezes - Cardiovascular Exam Cardiovascular Exam: REGULAR RHYTHM, +S1, +S2 - GI/Abdominal Exam GI & Abdominal Exam: Soft, Normal Bowel Sounds. absent: Tenderness, Diminished Bowel Sounds, Hypoactive Bowel Sounds - Extremities Exam Extremities Exam: Normal Capillary Refill, Normal Inspection - Neurological Exam Neurological Exam: Alert, Awake, Oriented x3 - Psychiatric Exam Psychiatric exam: Normal Affect, Normal Mood - Skin Skin Exam: Dry, Intact, Normal Color, Warm Assessment and Plan - Assessment and Plan (Free Text) Assessment: CHF Cardio Dr. Gong consulted, help appreciated. ASA 325mg PO daily. Lisinopril 5mg PO daily. Toprol XL 25mg PO daily. S/P abnormal stress test. S/P cath which showed EF 25-30% (40-45% on 2015 ECHO) and [address] Eckert consulted for LifeVest placement. F/U Thallium viability study report. DM Levemir 35U SC q12H RISS, accuchecks. Hypothyroidism SYnthroid 25mcg PO daily. Elevated LFT and sigmoid thickening Cipro and Flagyl stopped per GI. GI Dr. Calhoun consulted, help appreciated. Will f/u outpatient. Prophylactic measure Protonix, SCD. All medical management as per Dr. Gonzales. OR patient home as per Dr. Gonzales <Megan Gonzales S - Last Filed: 04/24/17 15:01> Objective - Vital Signs/Intake and Output Vital Signs (last 24 hours): Temp Pulse Resp BP Pulse Ox 97.7 F 59 L 20 123/72 97 02/12/17 07:20 02/12/17 07:20 02/12/17 07:20 02/12/17 07:20 02/12/17 07:20 - Labs Labs: 02/12/17 08:10 02/12/17 08:10 PT 11.2 SECONDS (9.7-12.2) 02/07/17 00:59 INR 1.0 02/07/17 00:59 APTT 34 SECONDS (21-34) 02/07/17 00:59 Assessment and Plan (1) CAD (coronary artery disease) Status: Acute (2) Cardiomyopathy Status: Acute (3) Chest pain Status: Acute (4) Complete heart block Status: Acute (5) Decreased cardiac ejection fraction Status: Acute (6) Diabetes Status: Acute (7) Elevated liver enzymes Status: Acute (8) Syncope Status: Acute Attending/Attestation - Attestation I have personally seen and examined this patient.: Yes I have fully participated in the care of the patient.: Yes I have reviewed all pertinent clinical information, including history, physical exam and plan: Yes Notes (Text): Case seen and discussed with the staff and the resident management as agreed
[2017-02-12] MEDS: Pantoprazole 40 mg EC Tab PO SCH (10:15)
[2017-02-12] MEDS: Insulin Detemir 100 units/ml Vial (Levemir) SC SCH (10:26)
--- NOTE | 2017-02-12 15:01 | CP.PCM.PN ---
Subjective - Date & Time of Evaluation Date of Evaluation: 02/12/17 Time of Evaluation: 12:20 - Subjective Subjective: clinically same Objective - Vital Signs/Intake and Output Vital Signs (last 24 hours): Temp Pulse Resp BP Pulse Ox 97.7 F 59 L 20 123/72 97 02/12/17 07:20 02/12/17 07:20 02/12/17 07:20 02/12/17 07:20 02/12/17 07:20 Intake and Output: 02/12/17 02/12/17 06:59 18:59 Intake Total 1050 Balance 1050 - Medications Medications: Current Medications Acetaminophen (Tylenol 325mg Tab) 650 mg PO Q6 PRN PRN Reason: Pain, moderate (4-7) Aspirin (Aspirin) 325 mg PO DAILY [facility] Last Admin: 02/12/17 10:15 Dose: 325 mg Metronidazole (Flagyl) 500 mg in 100 mls @ 100 mls/hr IVPB Q12H [facility] Last Admin: 02/12/17 03:37 Dose: 100 mls/hr Insulin Detemir (Levemir) 35 unit SC Q12 [facility] Last Admin: 02/12/17 10:26 Dose: 35 unit Insulin Human Regular (Novolin R) 0 unit SC ACHS [facility] PRN Reason: Protocol Last Admin: 02/12/17 11:55 Dose: 5 unit Levothyroxine Sodium (Synthroid) 25 mcg PO DAILY@0630 [facility] Last Admin: 02/12/17 05:43 Dose: 25 mcg Lisinopril (Zestril) 5 mg PO DAILY [facility] Last Admin: 02/12/17 10:15 Dose: 5 mg Pantoprazole Sodium (Protonix Ec Tab) 40 mg PO DAILY [facility] Last Admin: 02/12/17 10:15 Dose: 40 mg - Labs Labs: 02/12/17 08:10 02/12/17 08:10 PT 11.2 SECONDS (9.7-12.2) 02/07/17 00:59 INR 1.0 02/07/17 00:59 APTT 34 SECONDS (21-34) 02/07/17 00:59 - Constitutional Appears: Well - Head Exam Head Exam: ATRAUMATIC, NORMAL INSPECTION, NORMOCEPHALIC - Eye Exam Eye Exam: EOMI, Normal appearance, PERRL Pupil Exam: NORMAL ACCOMODATION, PERRL - ENT Exam ENT Exam: Mucous Membranes Moist, Normal Exam - Neck Exam Neck Exam: Full ROM, Normal Inspection. absent: Lymphadenopathy - Respiratory Exam Respiratory Exam: Decreased Breath Sounds - Cardiovascular Exam Cardiovascular Exam: +S1, +S2 - GI/Abdominal Exam GI & Abdominal Exam: Soft, Hypoactive Bowel Sounds - Rectal Exam Rectal Exam: Deferred Assessment and Plan (1) Chest pain Status: Acute (2) Decreased cardiac ejection fraction Status: Acute (3) Elevated liver enzymes Status: Acute (4) CAD (coronary artery disease) Status: Acute (5) Diabetes Status: Acute (6) Syncope Status: Acute - Assessment and Plan (Free Text) Plan: Patient can be discharged on life vest Continue statin, aspirin, beta-dennys Outpatient follow-up with Dr. Eckert in a week Follow-up with Dr. Gonzales for medicine
--- NOTE | 2017-02-12 15:49 | CP.PCM.PN ---
<Evens Finnegan - Last Filed: 02/12/17 17:04> Subjective - Date & Time of Evaluation Date of Evaluation: 02/12/17 Time of Evaluation: 09:05 - Subjective Subjective: Cardiology Progress Note Dr. Eckert Patient seen and examined at bedside. No acute complaints. No acute events overnight. Sitting comfortably in chair at time of exam. Denies chest pain, shortness of breath, sensation of LLE swelling/squeezing, or lightheadedness/ dizziness. Denies any other cardiovascular complaint. Remaining ROS negative. Objective - Vital Signs/Intake and Output Vital Signs (last 24 hours): Temp Pulse Resp BP Pulse Ox 97.7 F 59 L 20 123/72 97 02/12/17 07:20 02/12/17 07:20 02/12/17 07:20 02/12/17 07:20 02/12/17 07:20 Intake and Output: 02/12/17 02/12/17 06:59 18:59 Intake Total 1050 Balance 1050 - Medications Medications: Current Medications Acetaminophen (Tylenol 325mg Tab) 650 mg PO Q6 PRN PRN Reason: Pain, moderate (4-7) Aspirin (Aspirin) 325 mg PO DAILY [facility] Last Admin: 02/12/17 10:15 Dose: 325 mg Metronidazole (Flagyl) 500 mg in 100 mls @ 100 mls/hr IVPB Q12H [facility] Last Admin: 02/12/17 03:37 Dose: 100 mls/hr Insulin Detemir (Levemir) 35 unit SC Q12 [facility] Last Admin: 02/12/17 10:26 Dose: 35 unit Insulin Human Regular (Novolin R) 0 unit SC ACHS [facility] PRN Reason: Protocol Last Admin: 02/12/17 11:55 Dose: 5 unit Levothyroxine Sodium (Synthroid) 25 mcg PO DAILY@0630 [facility] Last Admin: 02/12/17 05:43 Dose: 25 mcg Lisinopril (Zestril) 5 mg PO DAILY [facility] Last Admin: 02/12/17 10:15 Dose: 5 mg Pantoprazole Sodium (Protonix Ec Tab) 40 mg PO DAILY [facility] Last Admin: 02/12/17 10:15 Dose: 40 mg - Labs Labs: 02/12/17 08:10 02/12/17 08:10 PT 11.2 SECONDS (9.7-12.2) 05/21/17 00:59 INR 1.0 02/07/17 00:59 APTT 34 SECONDS (21-34) 02/07/17 00:59 - Additional Findings Additional findings: - Constitutional Appears: Well, Non-toxic, No Acute Distress - Head Exam Head Exam: ATRAUMATIC, NORMAL INSPECTION, NORMOCEPHALIC - Eye Exam Eye Exam: EOMI, Normal appearance. absent: Conjunctival injection, Scleral icterus Pupil Exam: absent: Irregular, Unequal - ENT Exam ENT Exam: Mucous Membranes Moist - Neck Exam Neck exam: Positive for: Full Rom - Respiratory Exam Respiratory Exam: Clear to Auscultation Bilateral, NORMAL BREATHING PATTERN. absent: Accessory Muscle Use, Chest Wall Tenderness, Decreased Breath Sounds, Rales, Rhonchi, Wheezes - Cardiovascular Exam Cardiovascular Exam: REGULAR RHYTHM, RRR, +S1, +S2. absent: Bradycardia, Tachycardia, Irregular Rhythm, +S4 - GI/Abdominal Exam GI & Abdominal Exam: Normal Bowel Sounds, Soft. absent: Diminished Bowel Sounds , Hyperactive Bowel Sounds, Hypoactive Bowel Sounds, Tenderness - Extremities Exam Extremities exam: Healed LLE groin femoral canulation site without surrounding erythema/fluctuance/hematoma. Negative for: calf tenderness, pedal edema, tenderness - Neurological Exam Neurological exam: Alert, Awake, Oriented x3 - Psychiatric Exam Psychiatric exam: Normal Affect, Normal Mood - Skin Skin Exam: Dry, Intact, Normal Color, Warm Assessment and Plan (1) Decreased cardiac ejection fraction Assessment & Plan: EKG 02/07/17: Sinus rhythm at 71, 1st degree AV block with AK 222, Possible Left atrial enlargement, Right bundle branch block, Left anterior fascicular block, * Bifascicular block Anterolateral infarct (age undetermined), Abnormal ECG Echo 02/07/17: Severely dilated LV with normal wall thickness, EF 25-30%, ischemic cardiomyopathy, [place] of inferoapical/apical/anteroapical segements , no mural clots, Grade-II pseudonormal filling, moderately elevated LAP, Mild AR, Moderate MR Stress test 02/08/17: Abnormal stress test, large anterior and apical defects suggestive of scar and old NM Cardiac Cath 02/09/17: pending official report, 2-vessel disease, confirmed EF 25 -30% -Dilated and ischemic cardiomyopathy, EF 25-30% -At risk for sudden cardiac , will need pacing -Life Vest ordered, to be delivered today -Once patient has life vest, stable for discharge from EP standpoint; after discharge should follow up with Dr. Eckert as outpt in 1-2 weeks. -Continue current medical management as per primary Cardio (Dr. Gong) Status: Acute - Assessment and Plan (Free Text) Assessment: Case discussed with Dr. Eckert. <Em Eckert - Last Filed: 02/13/17 19:40> Objective - Vital Signs/Intake and Output Vital Signs (last 24 hours): Temp Pulse Resp BP Pulse Ox 97.7 F 59 L 20 123/72 97 02/12/17 07:20 02/12/17 07:20 02/12/17 07:20 02/12/17 07:20 02/12/17 07:20 - Labs Labs: 02/12/17 08:10 02/12/17 08:10 PT 11.2 SECONDS (9.7-12.2) 02/07/17 00:59 INR 1.0 02/07/17 00:59 APTT 34 SECONDS (21-34) 02/07/17 00:59 Attending/Attestation - Attestation I have personally seen and examined this patient.: Yes I have fully participated in the care of the patient.: Yes I have reviewed all pertinent clinical information, including history, physical exam and plan: Yes Notes (Text): 02/13/17 19:40 Pt for ICD vest follow up in office
[2017-02-12 21:43] LABS: LKM-1 Ab (IgG) <=20.0 U (<=20.0)
--- NOTE | 2017-02-13 06:23 | CARD ---
APPROVED REPORT submaximum (85%): 0 bpm Electronically Approved: 02/11/2017 15:07:53 EXAM: Myocardial Viability REST/DELAY Stress Test Type: TALLIUM VIABILITY STUDY Imaging Protocol The imaging protocol used to acquire images was Viability only Rest Spect myocardial perfusion imaging was performed in supine position 5 minutes following the injection of 4 mCi of Thallium 201. Delay rest spect was performed 240 and 1440 minutes after intravenous Thallium injection. Images were reconstructed using backfilter projection method in short horizontal and verticle long axis. Spect slices were generated. Conclusion 1. Thallium Viability Study: All The images reviewed 2. Large fixed anterio and apical defect with no viability suggestive of old LAD infarct 3. EF 20%
--- NOTE | 2017-02-13 08:33 | CARDCATH ---
PROCEDURE DATE: 02/09/2017 PROCEDURES: 1. Left heart catheterization. 2. Coronary angiogram. CLINICAL INDICATIONS: 1. Angina. 2. Hypertension. 3. Hyperlipidemia. 4. History of coronary artery disease. 5. Diabetes. 6. Abnormal stress test. REFERRING PHYSICIANS: 1. Dr. Arron Gonzales. 2. Dr. Em Eckert. 3. Dr. Chandler Berumen. PERFORMING PHYSICIAN: Dr. Maximilian Gong. PROCEDURE: After informed consent, the patient was prepped and draped in the usual sterile fashion. Lidocaine 2% was given in the right groin for local anesthesia. Using micropuncture technique, 6-Fr ench sheath was introduced into right common femoral artery. Using the usual diagnostic catheters, l eft heart catheterization and coronary angiogram were performed. The patient tolerated the procedure well. FINDINGS: 1. Left main coronary artery is patent. 2. Left anterior descending coronary artery has 100% ostial occlusion. This is a chronic total occl usion and there are no collaterals to left anterior descending coronary artery visible. 3. Left circumflex is dominant. Proximal left circumflex is patent. Obtuse marginal branches are p atent. Distal left circumflex has a 40-50% nonobstructive stenosis. 4. Right coronary artery is small and nondominant. Mid right coronary artery has a 90% stenosis. 5. LV ejection fraction is approximately 25%. LV is mildly dilated. EDP is 32. No gradient across the aortic valve. Estimated ejection fraction is 25-30%. CONCLUSION: 1. Chronic total occlusion of the left anterior descending coronary artery. 2. Nonobstructive left circumflex coronary artery. 3. Small nondominant right coronary artery. 4. Left ventricular ejection fraction is approximately 25-30%. RECOMMENDATIONS: Recommend myocardial viability test. Maximilian Gong MD cc: [id number] TT: 02/13/2017 08:32:29 tn
== END 2017-02-12 15:45 | disposition home or self-care (01) | DRG 287 ==
LOC: C.ER 00:10 → C.9E 03:16 → C.9I 07:41 → C.3T 02-09 06:40 → C.6T 02-09 13:53
PROVIDERS: ADMIT Internal Medicine Nephrology; ATTEND Internal Medicine Nephrology
PROC: 4A023N7 Measurement of Cardiac Sampling and Pressure, Left Heart, Percutaneous Approach (ICD-10-PCS; principal; 2017-02-09)
PROC: B2111ZZ Fluoroscopy of Multiple Coronary Arteries using Low Osmolar Contrast (ICD-10-PCS; 2017-02-09)
DX: I25.119 Atherosclerotic heart disease of native coronary artery with unspecified angina pectoris (principal); I11.0 Hypertensive heart disease with heart failure; I50.22 Chronic systolic (congestive) heart failure; I25.82 Chronic total occlusion of coronary artery; K76.1 Chronic passive congestion of liver; E11.9 Type 2 diabetes mellitus without complications; E78.5 Hyperlipidemia, unspecified; I25.5 Ischemic cardiomyopathy; I44.0 Atrioventricular block, first degree; R74.8 Abnormal levels of other serum enzymes; R55 Syncope and collapse; E03.9 Hypothyroidism, unspecified; R79.89 Other specified abnormal findings of blood chemistry; Z87.891 Personal history of nicotine dependence; Z82.41 Family history of sudden cardiac death

== ENCOUNTER 2017-03-11 09:27 | Inpatient (IN) | payer OTHER ==
--- NOTE | 2017-03-11 10:03 | C.PDOC ---
History Of Present Illness 57 y/o male with Hx of [id number], CAD, DM, HTN, Thyroid Disease and an ejection fraction of 30% presents to ED with complaints of weakness and sob since Wednesday. Patient also complaints of fever for "last couple of days" with a temperature of 101.0. Patient called EMS on Wednesday but refused to go to ED for evaluation. Also c/o intermitten HAs. Patient denies cp, or any other complaints at this time. PMD: Dr. Shashank Gonzales Cardiologists: Dr. Gong, Dr. Crouch Time Seen by Provider: 03/11/17 09:49 Chief Complaint (Nursing): Shortness Of Breath History Per: Patient History/Exam Limitations: no limitations Onset/Duration Of Symptoms: Days Current Symptoms Are (Timing): Still Present Associated Symptoms: Fever Past Medical History Reviewed: Historical Data, Nursing Documentation, Vital Signs Vital Signs: Last Vital Signs Temp 98.4 F 03/11/17 09:30 Pulse 31 L 03/11/17 11:37 Resp 17 03/11/17 11:12 BP 121/50 L 03/11/17 11:12 Pulse Ox 100 03/11/17 11:12 - Medical History PMH: Diabetes, HTN, Hypothyroidism Denies: Chronic Kidney Disease - [facility] Procedures FLUOROSCOPY OF MULT COR ART USING L OSM CONTRAST (02/07/17) MEASURE OF CARDIAC SAMPL & PRESSURE, L HEART, PERC APPROACH (02/07/17) Family History: States: Diabetes - Social History Hx Tobacco Use: Yes Hx Alcohol Use: No Hx Substance Use: No - Immunization History Hx Tetanus Toxoid Vaccination: No Hx Influenza Vaccination: Yes Hx Pneumococcal Vaccination: No Review Of Systems Except As Marked, All Systems Reviewed And Found Negative. Constitutional: Positive for: Fever, Weakness. Negative for: Chills, Sweats Cardiovascular: Negative for: Chest Pain Respiratory: Positive for: Shortness of Breath. Negative for: Cough Gastrointestinal: Negative for: Nausea, Vomiting, Diarrhea Skin: Negative for: Rash Neurological: Positive for: Weakness. Negative for: Numbness, Headache, Dizziness Physical Exam - Physical Exam Appears: Other (Lethargic) Skin: Normal Color, Warm Head: Atraumatic, Normacephalic Eye(s): bilateral: Normal Inspection Ear(s): Bilateral: Normal Nose: Normal Oral Mucosa: Moist Tongue: Normal Appearing Lips: Normal Appearing Throat: Normal Neck: Normal ROM Lymphatic: Deferred Cardiovascular: No Edema, Other (Slow Heart Rate) Respiratory: Normal Breath Sounds, No Rales, No Rhonchi, No Wheezing Gastrointestinal/Abdominal: Bowel Sounds, Soft, No Tenderness, No Guarding, No Rebound Extremity: Normal ROM, Capillary Refill (<2 seconds) Extremity: Bilateral: Atraumatic Neurological/Psych: Oriented x3, Normal Speech, Normal Sensation, Normal Reflexes ED Course And Treatment - Laboratory Results Result Diagrams: 03/11/17 09:56 03/11/17 09:56 ECG Rhythm: 3rd Degree HB (rate 32) Interpretation Of ECG: Complete Heart Block Rate From EC (bpm) O2 Sat by Pulse Oximetry: 95 (RA) Critical Care Time - Critical Care Note Total Time (in mins): 35 Documented critical care: time excludes all time spent performing seperately billable procedures. Medical Decision Making Medical Decision Making: Initial Impression: 3rd Degree Heart Block Initial Plan: Patient will be admitted to ICU. I suspect that an ICD will be inserted Case discussed with Dr. Anish Gonzales and agreed with plan for patient Case d/w with Dr. Gong--recommends evaluation by Dr. Crouch. I spoke to Dr. Dickey--he will assess the pt. Transcutaneous pacer at bedside. Disposition - Disposition Disposition: HOSPITALIZED Disposition Time: 10:02 Condition: CRITICAL - Clinical Impression Clinical Impression: Complete heart block, Cardiomyopathy - Scribe Statement The provider has reviewed the documentation as recorded by the Tyroneibpalak Cisse All medical record entries made by the Tyroneibe were at my direction and personally dictated by me. I have reviewed the chart and agree that the record accurately reflects my personal performance of the history, physical exam, medical decision making, and the department course for this patient. I have also personally directed, reviewed, and agree with the discharge instructions and disposition. Decision To Admit - Pt Status Changed To: Hospital Disposition Of: Inpatient - Admit Certification Admit to Inpatient:: After my assessment, the patient will require hospitalization for at least two midnights. This is because of the severity of symptoms shown, intensity of services needed, and/or the medical risk in this patient being treated as an outpatient. - InPatient: Physician Admission Certification: I certify that this patient requires 2 or more midnights of care for the following reason:: Pt in complete heart block - . Bed Request Type: ICU Admitting Physician: Megan Gonzales Patient Diagnosis: Complete heart block, Cardiomyopathy
[2017-03-11 10:07] LABS: BASO % 0.5 % (0.0-2.0); EOS # 0.1 K/uL (0.0-0.7); EOS % 1.1 % (0.0-4.0); HEMATOCRIT 35.6 % (35.0-51.0); LYMPH # 1.2 K/uL (1.0-4.3); LYMPH % 14.2 % (20.0-40.0); MEAN CELL VOLUME 83.3 fL (80.0-94.0); MEAN CORPUSCULAR HEMOGLOBIN 27.6 pg (27.0-31.0); MEAN CORPUSCULAR HGB CONC 33.1 g/dL (33.0-37.0); MEAN PLATELET VOLUME 10.5 fL (7.2-11.7); MONO # 0.4 K/uL (0.0-0.8); MONO % 4.7 % (0.0-10.0); RED CELL DISTRIBUTION WIDTH 13.8 % (11.5-14.5)
[2017-03-11 10:09] LABS: VENOUS BLOOD GAS BASE EXCESS -0.8 mmol/L (0.0-2.0); VENOUS BLOOD GAS PCO2 44 mmHg (40-60); VENOUS BLOOD PH 7.36 (7.32-7.43)
[2017-03-11 10:10] LABS: INR 1.2
[2017-03-11 10:11] LABS: WHITE BLOOD COUNT 8.5 K/uL (4.8-10.8)
[2017-03-11 10:21] LABS: POTASSIUM 4.3 mmol/L (3.6-5.2)
[2017-03-11 10:23] LABS: ALB/GLOB RATIO 1.1 (1.0-2.1); BILIRUBIN,TOTAL 1.2 mg/dL (0.2-1.3); PHOSPHOROUS 4.1 mg/dL (2.5-4.5); TOTAL PROTEIN 6.4 g/dL (6.3-8.3)
[2017-03-11 10:24] LABS: CALCIUM 8.3 mg/dl (8.6-10.4); MAGNESIUM 2.2 mg/dL (1.6-2.3)
--- NOTE | 2017-03-11 10:34 | RAD ---
HISTORY: bradycardia COMPARISON: 02/07/2017 FINDINGS: LUNGS: Diffuse increased interstitial lung markings suggestive for edema and or infiltrate. Consolidative changes at the left lung base with small left pleural effusion. PLEURA: As above. CARDIOVASCULAR: Cardiomegaly. OSSEOUS STRUCTURES: Degenerative changes. VISUALIZED UPPER ABDOMEN: Normal. OTHER FINDINGS: None. IMPRESSION: Diffuse increased interstitial lung markings suggestive for edema and or infiltrate. Consolidative changes at the left lung base with small left pleural effusion.
[2017-03-11 10:36] LABS: TROPONIN I 0.031 ng/mL (0.00-0.120)
--- NOTE | 2017-03-11 11:19 | CP.PCM.CON ---
<Dre Jackson - Last Filed: 03/11/17 16:36> History of Present Illness - History of Present Illness History of Present Illness: Consult Note for Dr. Eckert Reason for consult: Complete Heart Block 57 y/o M with PMH of HTN, CAD, DM, hypothyroidism, and HLD presents to the hospital with SOB and fever for 3 days. Pt states he began noticing shortness of breath 3 days ago. At this time, he also developed a fever. SOB was not associated with any exertion or cough. 3 days ago, pt became diaphoretic and did not feel well so his family called the ambulance. At this time, it was discovered that the patient had hypoglycemia. He was given some food and juice and became better. Pt states he is compliant with his medication. Today, pt began feeling worse and his fever became worse subjectively. On arrival to the ED, it was found that patient was in complete heart block. Pt does have a life vest at home that he was given from previous admission. Pt was found to have 2 vessel disease with complete occlusion of his LAD on cardiac cath. EF was 25-30 % at this time. Pt also admits to dizziness but no syncope during this time. Pt denies CP, N/V/D, chills, headache. PMH: HTN, CAD, DM, hypothyroidism, HLD PSH: Cardiac cath FHx: denies SHx: Denies tobacco or illicit drug use, admits to social alcohol use Allergies: NKDA Medications: See MAR Review of Systems - Constitutional Constitutional: Fatigue, Fever. absent: Chills - EENT Eyes: absent: Blurred Vision, Change in Vision - Cardiovascular Cardiovascular: Diaphoresis. absent: Chest Pain, Irregular Heart Rhythm - Respiratory Respiratory: Dyspnea. absent: Cough - Gastrointestinal Gastrointestinal: absent: Diarrhea, Vomiting - Genitourinary Genitourinary: absent: Dysuria, Hematuria - Neurological Neurological: Dizziness. absent: Syncope, Tingling Past Patient History - Past Medical History & Family History Past Medical History?: Yes - Past Social History Smoking Status: Former Smoker - CARDIAC Hx Hypertension: Yes - PULMONARY Hx Respiratory Disorders: No - NEUROLOGICAL Hx Neurological Disorder: No - HEENT Hx HEENT Problems: No - RENAL Hx Chronic Kidney Disease: No - ENDOCRINE/METABOLIC Hx Hypothyroidism: Yes - HEMATOLOGICAL/ONCOLOGICAL Hx Blood Disorders: No - INTEGUMENTARY Hx Dermatological Problems: No - MUSCULOSKELETAL/RHEUMATOLOGICAL Hx Musculoskeletal Disorders: No Hx Falls: No - GASTROINTESTINAL Hx Gastrointestinal Disorders: No - GENITOURINARY/GYNECOLOGICAL Hx Genitourinary Disorders: No - PSYCHIATRIC Hx Substance Use: No - SURGICAL HISTORY Hx Surgeries: No - ANESTHESIA Hx Anesthesia: Yes Hx Anesthesia Reactions: No Hx Malignant Hyperthermia: No Meds Allergies/Adverse Reactions: Allergies Allergy/AdvReac Type Severity Reaction Status Date / Time No Known Allergies Allergy Verified 03/11/17 09:38 Physical Exam - Constitutional Appears: Well, No Acute Distress - Head Exam Head Exam: ATRAUMATIC, NORMAL INSPECTION, NORMOCEPHALIC - ENT Exam ENT Exam: Mucous Membranes Moist - Respiratory Exam Respiratory Exam: Decreased Breath Sounds, NORMAL BREATHING PATTERN Additional comments: Life vest in place - Cardiovascular Exam Cardiovascular Exam: Bradycardia, +S1, +S2 - GI/Abdominal Exam GI & Abdominal Exam: Normal Bowel Sounds, Soft. absent: Tenderness - Extremities Exam Extremities exam: Positive for: pedal edema. Negative for: calf tenderness - Neurological Exam Neurological exam: Alert, Oriented x3 - Skin Skin Exam: Intact, Normal Color, Warm Results - Vital Signs Recent Vital Signs: Last Vital Signs Temp 98.4 F 03/11/17 09:30 Pulse 31 L 03/11/17 11:12 Resp 17 03/11/17 11:12 BP 121/50 L 03/11/17 11:12 Pulse Ox 100 03/11/17 11:12 - Labs Result Diagrams: 03/11/17 09:56 03/11/17 09:56 Labs: Laboratory Results - last 24 hr 03/11/17 10:05 pO2 18 L VBG pH 7.36 VBG pCO2 44 VBG HCO3 22.3 VBG Total CO2 26.3 VBG O2 Sat (Calc) 26.6 L VBG Base Excess -0.8 L VBG Potassium 4.4 Sodium 131.0 L Chloride 99.0 Glucose 274 H Lactate 1.7 Venous Blood Potassium 4.4 Assessment & Plan (1) Complete heart block Assessment and Plan: Pt will have transvenous pacer placed tomorrow AM Possible ICD placement in near future Status: Acute <Em Eckert - Last Filed: 03/12/17 09:46> Meds - Medications Medications: Current Medications Dextrose/Sodium Chloride (Dextrose 5%/0.9% Ns 1000 Ml) 1,000 mls @ 60 mls/hr IV .[id number] [facility] Last Admin: 03/11/17 22:20 Dose: 60 mls/hr Insulin Aspart (Novolog) 0 unit SC ACHS [facility] PRN Reason: Protocol Last Admin: 03/12/17 07:31 Dose: Not Given Levothyroxine Sodium (Synthroid) 100 mcg PO DAILY@0630 [facility] Last Admin: 03/12/17 05:55 Dose: 100 mcg Pantoprazole Sodium (Protonix Inj) 40 mg IVP DAILY [facility] Last Admin: 03/12/17 09:22 Dose: 40 mg Results - Vital Signs Recent Vital Signs: Last Vital Signs Temp 98.4 F 03/12/17 08:20 Pulse 64 03/12/17 09:00 Resp 18 03/12/17 09:00 BP 118/64 03/12/17 09:00 Pulse Ox 96 03/12/17 09:00 - Labs Result Diagrams: 03/12/17 06:20 03/12/17 06:22 Labs: Laboratory Results - last 24 hr 03/11/17 03/11/17 03/11/17 10:05 12:03 12:52 WBC RBC Hgb Hct MCV MCH MCHC RDW Plt Count MPV Neut % (Auto) Lymph % (Auto) [place] % (Auto) Eos % (Auto) Baso % (Auto) Neut # Lymph # [place] # Eos # Baso # pO2 18 L VBG pH 7.36 VBG pCO2 44 VBG HCO3 22.3 VBG Total CO2 26.3 VBG O2 Sat (Calc) 26.6 L VBG Base Excess -0.8 L VBG Potassium 4.4 Sodium 131.0 L Chloride 99.0 Glucose 274 H Lactate 1.7 Potassium Carbon Dioxide Anion Gap BUN Creatinine Est GFR ( Amer) Est GFR (Non-Af Amer) POC Glucose (mg/dL) 312 H Random Glucose Calcium Phosphorus Magnesium Total Bilirubin AST ALT Alkaline Phosphatase Total Protein Albumin Globulin Albumin/Globulin Ratio Free T4 TSH 3rd Generation 21.40 H Venous Blood Potassium 4.4 03/11/17 03/11/17 03/11/17 12:52 16:12 21:20 WBC RBC Hgb Hct MCV MCH MCHC RDW Plt Count MPV Neut % (Auto) Lymph % (Auto) [place] % (Auto) Eos % (Auto) Baso % (Auto) Neut # Lymph # [place] # Eos # Baso # pO2 VBG pH VBG pCO2 VBG HCO3 VBG Total CO2 VBG O2 Sat (Calc) VBG Base Excess VBG Potassium Sodium Chloride Glucose Lactate Potassium Carbon Dioxide Anion Gap BUN Creatinine Est GFR ( Amer) Est GFR (Non-Af Amer) POC Glucose (mg/dL) 178 H 75 Random Glucose Calcium Phosphorus Magnesium Total Bilirubin AST ALT Alkaline Phosphatase Total Protein Albumin Globulin Albumin/Globulin Ratio Free T4 1.27 TSH 3rd Generation Venous Blood Potassium 03/12/17 03/12/17 06:20 06:22 WBC 4.8 RBC 3.99 L Hgb 11.1 L Hct 33.1 L MCV 83.0 MCH 27.9 MCHC 33.6 RDW 13.8 Plt Count 144 MPV 10.4 Neut % (Auto) 62.8 Lymph % (Auto) 26.3 [place] % (Auto) 7.2 Eos % (Auto) 2.6 Baso % (Auto) 1.1 Neut # 3.0 Lymph # 1.3 [place] # 0.3 Eos # 0.1 Baso # 0.1 pO2 VBG pH VBG pCO2 VBG HCO3 VBG Total CO2 VBG O2 Sat (Calc) VBG Base Excess VBG Potassium Sodium 135 Chloride 103 Glucose Lactate Potassium 4.2 Carbon Dioxide 27 Anion Gap 9 L BUN 33 H Creatinine 1.2 Est GFR ( Amer) > 60 Est GFR (Non-Af Amer) > 60 POC Glucose (mg/dL) Random Glucose 82 Calcium 7.9 L Phosphorus 3.9 Magnesium 2.2 Total Bilirubin 0.9 AST 55 ALT 79 H Alkaline Phosphatase 37 L D Total Protein 5.8 L Albumin 2.9 L Globulin 2.9 Albumin/Globulin Ratio 1.0 Free T4 TSH 3rd Generation Venous Blood Potassium Attending/Attestation - Attestation I have personally seen and examined this patient.: Yes I have fully participated in the care of the patient.: Yes I have reviewed all pertinent clinical information: Yes Notes (Text): 03/12/17 09:45 viability study negative poor ef with complete heart block will need transvenous pacemaker and transfer to [facility] for ICD
--- NOTE | 2017-03-11 12:14 | CP.PCM.CON ---
<Daniella Buitrago - Last Filed: 03/11/17 14:38> History of Present Illness - History of Present Illness History of Present Illness: ICU Consult Reason for consult: monitoring patient with complete heart block HPI: 57 y/o M with PMH of Systolic CHF, and an EF of 25-30% on 02/09/17 ( previously 40-45% on Echo Sep 2014), HTN, CAD, DM, hypothyroidism, and HLD presents to the hospital with SOB for 3 days. Patient reported he noticed he was becoming increasingly SOB both at rest and with very little exertion [ie waking around the house] and was needed 1-2 pillows to sleep. Patient also reported he had a fever 101F and was diaphoretic yesterday. EMS was called and patient was found to be hypoglycemic and was given some food and juice and became better. On arrival to the ED, it was found that patient was in complete heart block. Patient has been wearing a life vest since previous admission. Patient was found to have 2 vessel disease with complete occlusion of his LAD on cardiac cath. EF was 25-30% at this time. Pt also admits to dizziness but no syncope during this time. Pt denies chest pain, palpitations, abd pain, nausea, vomiting, bowel/bladder complaints, swelling in his legs b/l. Patient denies any sick contacts, recent travel. PMH: Systolic CHF, and an EF of 25-30% on 02/09/17 (previously 40-45% on Echo Sep 2014), HTN, CAD, DM, hypothyroidism, and HLD PSH: Cardiac cath 02/13: chronic total occlusion of LAD; nonobstructing L circumflex coronary A; small nondominant R coronary A; LV EF 25-30% FHx: denies SHx: Denies tobacco or illicit drug use, admits to social alcohol use Allergies: NKDA Medications: See MAR Review of Systems - Constitutional Constitutional: As Per HPI, Chills, Fever - EENT Eyes: As Per HPI. absent: Change in Vision Ears: As Per HPI, Dizziness Nose/Mouth/Throat: As Per HPI. absent: Sore Throat - Cardiovascular Cardiovascular: As Per HPI, Dyspnea, Dyspnea on Exertion. absent: Chest Pain, Edema - Respiratory Respiratory: As Per HPI, Dyspnea, Dyspnea on Exertion. absent: Cough, Wheezing - Gastrointestinal Gastrointestinal: As Per HPI. absent: Abdominal Pain, Constipation, Diarrhea, Nausea, Vomiting - Genitourinary Genitourinary: As Per HPI. absent: Dysuria, Hematuria - Musculoskeletal Musculoskeletal: As Per HPI, Arthralgias. absent: Back Pain, Numbness, Tingling - Integumentary Integumentary: As Per HPI. absent: Rash - Neurological Neurological: As Per HPI, Dizziness, Headaches. absent: Numbness, Tingling - Psychiatric Psychiatric: As Per HPI. absent: Anxiety, Depression - Endocrine Endocrine: As Per HPI. absent: Palpitations, Polydipsia, Polyphagia, Polyuria Past Patient History - Past Medical History & Family History Past Medical History?: Yes - Past Social History Smoking Status: Former Smoker - CARDIAC Hx Hypertension: Yes - PULMONARY Hx Respiratory Disorders: No - NEUROLOGICAL Hx Neurological Disorder: No - HEENT Hx HEENT Problems: No - RENAL Hx Chronic Kidney Disease: No - ENDOCRINE/METABOLIC Hx Hypothyroidism: Yes - HEMATOLOGICAL/ONCOLOGICAL Hx Blood Disorders: No - INTEGUMENTARY Hx Dermatological Problems: No - MUSCULOSKELETAL/RHEUMATOLOGICAL Hx Musculoskeletal Disorders: No Hx Falls: No - GASTROINTESTINAL Hx Gastrointestinal Disorders: No - GENITOURINARY/GYNECOLOGICAL Hx Genitourinary Disorders: No - PSYCHIATRIC Hx Substance Use: No - SURGICAL HISTORY Hx Surgeries: No - ANESTHESIA Hx Anesthesia: Yes Hx Anesthesia Reactions: No Hx Malignant Hyperthermia: No Meds Allergies/Adverse Reactions: Allergies Allergy/AdvReac Type Severity Reaction Status Date / Time No Known Allergies Allergy Verified 03/11/17 09:38 Physical Exam - Constitutional Appears: Non-toxic, No Acute Distress - Head Exam Head Exam: ATRAUMATIC, NORMAL INSPECTION, NORMOCEPHALIC - Eye Exam Eye Exam: EOMI, Normal appearance, PERRL. absent: Conjunctival injection, Scleral icterus Pupil Exam: NORMAL ACCOMODATION - ENT Exam ENT Exam: Mucous Membranes Moist - Neck Exam Neck exam: Positive for: Full Rom, Normal Inspection - Respiratory Exam Respiratory Exam: Clear to Auscultation Bilateral, NORMAL BREATHING PATTERN. absent: Accessory Muscle Use, Rales, Rhonchi, Wheezes, Respiratory Distress - Cardiovascular Exam Cardiovascular Exam: Bradycardia, REGULAR RHYTHM, +S1, +S2 Additional comments: life vest in place - GI/Abdominal Exam GI & Abdominal Exam: Normal Bowel Sounds, Soft. absent: Firm, Guarding, Rigid, Tenderness - Extremities Exam Extremities exam: Positive for: normal capillary refill, normal inspection, pedal pulses present. Negative for: pedal edema Additional comments: SCDs in place - Back Exam Back exam: NORMAL INSPECTION. absent: rash noted - Neurological Exam Neurological exam: Alert, CN II-XII Intact, Oriented x3 - Psychiatric Exam Psychiatric exam: Normal Affect, Normal Mood - Skin Skin Exam: Dry, Intact, Normal Color, Warm Results - Vital Signs Recent Vital Signs: Last Vital Signs Temp 98.4 F 03/11/17 09:30 Pulse 31 L 03/11/17 11:12 Resp 17 03/11/17 11:12 BP 121/50 L 03/11/17 11:12 Pulse Ox 100 03/11/17 11:12 - Labs Result Diagrams: 03/11/17 09:56 03/11/17 09:56 Labs: Laboratory Results - last 24 hr 03/11/17 03/11/17 10:05 12:03 pO2 18 L VBG pH 7.36 VBG pCO2 44 VBG HCO3 22.3 VBG Total CO2 26.3 VBG O2 Sat (Calc) 26.6 L VBG Base Excess -0.8 L VBG Potassium 4.4 Sodium 131.0 L Chloride 99.0 Glucose 274 H Lactate 1.7 POC Glucose (mg/dL) 312 H Venous Blood Potassium 4.4 Assessment & Plan - Assessment and Plan (Free Text) Assessment: 57 y/o M with PMH of Systolic CHF, and an EF of 25-30% on 02/09/17 (previously 40 -45% on Echo Sep 2014), HTN, CAD, DM, hypothyroidism, and HLD presents to the hospital with SOB for 3 days Plan: Neuro -dizziness likely secondary to symptomatic bradycardia -AO x 3 -Monitor Cardiovascular -Complete heart block -symptomatic bradycardia HR 30-40s -patient has life vest in place -proBNP 8140 -Echo 02/09/17: EF of 25-30% (previously 40-45% on Echo Sep 2014) -Cardiac cath 02/13: chronic total occlusion of LAD; nonobstructing L circumflex coronary A; small nondominant R coronary A; LV EF 25-30% -Dr Gong cardiology -Dr Eckert cardiology Pulmonology -no acute issues GI -no acute issues -NPO for possible procedure today Renal -BUN/Cr 44/1.8 -NS @ 60cc/hr -Monitor Endocrine -Accucheck -RISS -TSH 21.40 free T4 1.27 MSK -no acute events ID -Temp 101F at home -f/u blood culture -f/u urine culture DVT ppx: SCDs; VTE ppx on hold GI ppx: Protonix 40mg ivp daily Code status: full code Case discussed with Dr. Sun Buitrago PGY2 <Riccardo Garsia - Last Filed: 03/11/17 17:33> Meds - Medications Medications: Current Medications Sodium Chloride (Sodium Chloride 0.9%) 1,000 mls @ 60 mls/hr IV .[id number] [facility] Last Admin: 03/11/17 17:11 Dose: 60 mls/hr Insulin Aspart (Novolog) 0 unit SC ACHS [facility]1983 PRN Reason: Protocol Last Admin: 03/11/17 17:12 Dose: 2 unit Levothyroxine Sodium (Synthroid) 100 mcg PO DAILY@0630 [facility] Last Admin: 03/11/17 17:15 Dose: Not Given Pantoprazole Sodium (Protonix Inj) 40 mg IVP DAILY [facility] Last Admin: 03/11/17 12:27 Dose: 40 mg Results - Vital Signs Recent Vital Signs: Last Vital Signs Temp 97.8 F 03/11/17 16:00 Pulse 32 L 03/11/17 16:00 Resp 26 H 03/11/17 16:00 BP 113/53 L 03/11/17 16:00 Pulse Ox 99 03/11/17 16:00 - Labs Result Diagrams: 03/11/17 09:56 03/11/17 09:56 Labs: Laboratory Results - last 24 hr 03/11/17 03/11/17 03/11/17 10:05 12:03 12:52 pO2 18 L VBG pH 7.36 VBG pCO2 44 VBG HCO3 22.3 VBG Total CO2 26.3 VBG O2 Sat (Calc) 26.6 L VBG Base Excess -0.8 L VBG Potassium 4.4 Sodium 131.0 L Chloride 99.0 Glucose 274 H Lactate 1.7 POC Glucose (mg/dL) 312 H Free T4 TSH 3rd Generation 21.40 H Venous Blood Potassium 4.4 03/11/17 03/11/17 12:52 16:12 pO2 VBG pH VBG pCO2 VBG HCO3 VBG Total CO2 VBG O2 Sat (Calc) VBG Base Excess VBG Potassium Sodium Chloride Glucose Lactate POC Glucose (mg/dL) 178 H Free T4 1.27 TSH 3rd Generation Venous Blood Potassium Attending/Attestation - Attestation I have personally seen and examined this patient.: Yes I have fully participated in the care of the patient.: Yes I have reviewed all pertinent clinical information: Yes Notes (Text): 03/11/17 17:28 I have seen and examined the patient. Medical records, lab studies, and imaging were reviewed by me and a management plan was formulated on multidisciplinary rounds with resident Dr. Buitrago. I agree with their above documented assessment and plan. Patient has worsening cardiomyopathy with concomitant hypothyroidism exacerbating bradycardia. AICD placement tomorrow morning. Will re-start levothyroxine. Critical Care Time 35 minutes. Multi-disciplinary rounds were performed with house staff, nursing, speech therapy, respiratory therapy, pharmacy and nutrition with integrated input from the primary team/attending and other consulting services. The documented time is cumulative and includes review of patient data/exams/labs/chart review and examination of the patient on rounds and throughout the day; time is exclusive of any procedures or teaching time. 03/11/17 17:31
[2017-03-11] MEDS ORDERED: (Novolog) Insulin Aspart, Recombinant 100 u/ml 10 ml vial SC STA (12:27)
[2017-03-11] MEDS ORDERED: Sodium Chloride 0.9% 1,000 ML IV SCH (15:15)
--- NOTE | 2017-03-11 16:19 | CP.PCM.HP ---
Past Patient History - Past Medical History & Family History Past Medical History?: Yes - Past Social History Smoking Status: Former Smoker - CARDIAC Hx Hypertension: Yes - PULMONARY Hx Respiratory Disorders: No - NEUROLOGICAL Hx Neurological Disorder: No - HEENT Hx HEENT Problems: No - RENAL Hx Chronic Kidney Disease: No - ENDOCRINE/METABOLIC Hx Hypothyroidism: Yes - HEMATOLOGICAL/ONCOLOGICAL Hx Blood Disorders: No - INTEGUMENTARY Hx Dermatological Problems: No - MUSCULOSKELETAL/RHEUMATOLOGICAL Hx Musculoskeletal Disorders: No Hx Falls: No - GASTROINTESTINAL Hx Gastrointestinal Disorders: No - GENITOURINARY/GYNECOLOGICAL Hx Genitourinary Disorders: No - PSYCHIATRIC Hx Substance Use: No - SURGICAL HISTORY Hx Surgeries: No - ANESTHESIA Hx Anesthesia: Yes Hx Anesthesia Reactions: No Hx Malignant Hyperthermia: No Meds Allergies/Adverse Reactions: Allergies Allergy/AdvReac Type Severity Reaction Status Date / Time No Known Allergies Allergy Verified 03/11/17 09:38 Physical Exam - Constitutional Appears: Well - Head Exam Head Exam: ATRAUMATIC, NORMAL INSPECTION, NORMOCEPHALIC - Eye Exam Eye Exam: EOMI, Normal appearance, PERRL Pupil Exam: NORMAL ACCOMODATION, PERRL - ENT Exam ENT Exam: Mucous Membranes Moist, Normal Exam - Neck Exam Neck exam: Positive for: Normal Inspection - Respiratory Exam Respiratory Exam: Decreased Breath Sounds - Cardiovascular Exam Cardiovascular Exam: REGULAR RHYTHM, +S1, +S2 - GI/Abdominal Exam GI & Abdominal Exam: Diminished Bowel Sounds, Soft - Rectal Exam Rectal Exam: Deferred Results - Vital Signs Recent Vital Signs: Last Vital Signs Temp 98.4 F 03/11/17 09:30 Pulse 31 L 03/11/17 11:37 Resp 17 03/11/17 11:12 BP 121/50 L 03/11/17 11:12 Pulse Ox 95 03/11/17 15:59 - Labs Result Diagrams: 03/11/17 09:56 03/11/17 09:56 Labs: Laboratory Results - last 24 hr 03/11/17 03/11/17 03/11/17 10:05 12:03 12:52 pO2 18 L VBG pH 7.36 VBG pCO2 44 VBG HCO3 22.3 VBG Total CO2 26.3 VBG O2 Sat (Calc) 26.6 L VBG Base Excess -0.8 L VBG Potassium 4.4 Sodium 131.0 L Chloride 99.0 Glucose 274 H Lactate 1.7 POC Glucose (mg/dL) 312 H Free T4 TSH 3rd Generation 21.40 H Venous Blood Potassium 4.4 03/11/17 12:52 pO2 VBG pH VBG pCO2 VBG HCO3 VBG Total CO2 VBG O2 Sat (Calc) VBG Base Excess VBG Potassium Sodium Chloride Glucose Lactate POC Glucose (mg/dL) Free T4 1.27 TSH 3rd Generation Venous Blood Potassium
[2017-03-11] MEDS: (Novolog) Insulin Aspart, Recombinant 100 u/ml 10 ml vial SC SCH ×2 (17:12→22:00)
[2017-03-11] MEDS: Levothyroxine 100 MCG TAB PO SCH (17:15)
--- NOTE | 2017-03-11 19:57 | CARD ---
APPROVED REPORT EKG Measurement Heart [id number] HI P43 [id number] <Conclusion> Sinus rhythm with complete heart block and Idioventricular rhythm Left bundle branch block Abnormal ECG
[2017-03-11] MEDS ORDERED: Dextrose 5%/0.9% NS 1,000 ML IV SCH (22:15)
[2017-03-12 00:57] VITALS: TEMP 98.4
[2017-03-12] MEDS: Levothyroxine 100 MCG TAB PO SCH (05:55)
[2017-03-12 06:30] LABS: BASO # 0.1 K/uL (0.0-0.2); BASO % 1.1 % (0.0-2.0); EOS # 0.1 K/uL (0.0-0.7); EOS % 2.6 % (0.0-4.0); HEMATOCRIT 33.1 % (35.0-51.0); LYMPH # 1.3 K/uL (1.0-4.3); LYMPH % 26.3 % (20.0-40.0); MEAN CORPUSCULAR HEMOGLOBIN 27.9 pg (27.0-31.0); MEAN CORPUSCULAR HGB CONC 33.6 g/dL (33.0-37.0); MEAN PLATELET VOLUME 10.4 fL (7.2-11.7); MONO # 0.3 K/uL (0.0-0.8); MONO % 7.2 % (0.0-10.0); NRBC % 0.1 % (0.0-2.0); RED CELL DISTRIBUTION WIDTH 13.8 % (11.5-14.5); WHITE BLOOD COUNT 4.8 K/uL (4.8-10.8)
[2017-03-12 07:02] LABS: CHLORIDE 103 mmol/L (98-107); SODIUM 135 mmol/L (132-148)
[2017-03-12 07:04] LABS: AST/SGOT 55 U/L (17-59); BILIRUBIN,TOTAL 0.9 mg/dL (0.2-1.3); CARBON DIOXIDE 27 mmol/L (22-30); GFR AFRICAN-AMERICAN > 60
[2017-03-12 07:05] LABS: ALKALINE PHOSPHATASE 37 U/L (38-126); ALT/SGPT 79 U/L (21-72); BLOOD UREA NITROGEN 33 mg/dL (9-20); CALCIUM 7.9 mg/dl (8.6-10.4); GLUCOSE,RANDOM 82 mg/dL (75-110); MAGNESIUM 2.2 mg/dL (1.6-2.3); PHOSPHOROUS 3.9 mg/dL (2.5-4.5); TOTAL PROTEIN 5.8 g/dL (6.3-8.3)
[2017-03-12 07:10] LABS: POTASSIUM 4.2 mmol/L (3.6-5.2)
[2017-03-12] MEDS ORDERED: Lidocaine 2% Inj (20ml) ONE (07:13)
[2017-03-12] MEDS: (Novolog) Insulin Aspart, Recombinant 100 u/ml 10 ml vial SC SCH ×2 (07:31→11:28)
[2017-03-12 08:36] VITALS: PULSE 64
[2017-03-12] MEDS ORDERED: Dextrose 50% SYRINGE Inj (50 ml) IV STA ×2 (11:14→11:15)
[2017-03-12 11:23] VITALS: BP 118/74; RESP 21; O2SAT 99
[2017-03-12] MEDS ORDERED: Dextrose 50% SYRINGE Inj (50 ml) IV ONE (12:00)
--- NOTE | 2017-03-12 12:07 | CP.PCM.PN ---
Subjective - Date & Time of Evaluation Date of Evaluation: 03/12/17 Time of Evaluation: 12:05 - Subjective Subjective: Progress Note for Dr. Eckert Pt seen and examined at bedside. Pt with no acute events overnight. Pt underwent transvenous pacing placement this morning. Pt will be transferred to [facility] this afternoon. Denies CP, SOB, N/V/D, dizziness, syncope. Objective - Vital Signs/Intake and Output Vital Signs (last 24 hours): Temp Pulse Resp BP Pulse Ox 98.4 F 64 21 118/74 99 03/12/17 08:20 03/12/17 11:00 03/12/17 11:00 03/12/17 10:22 03/12/17 11:00 Intake and Output: 03/12/17 03/12/17 06:59 18:59 Intake Total 1440 370 Output Total 1210 600 Balance 230 -230 - Medications Medications: Current Medications Dextrose/Sodium Chloride (Dextrose 5%/0.9% Ns 1000 Ml) 1,000 mls @ 60 mls/hr IV .[id number] [facility] Last Admin: 03/11/17 22:20 Dose: 60 mls/hr Insulin Aspart (Novolog) 0 unit SC ACHS [facility] PRN Reason: Protocol Last Admin: 03/12/17 11:28 Dose: Not Given Levothyroxine Sodium (Synthroid) 100 mcg PO DAILY@0630 [facility] Last Admin: 03/12/17 05:55 Dose: 100 mcg Pantoprazole Sodium (Protonix Inj) 40 mg IVP DAILY [facility] Last Admin: 03/12/17 09:22 Dose: 40 mg - Labs Labs: 03/12/17 06:20 03/12/17 06:22 PT 13.7 SECONDS (9.7-12.2) H 03/11/17 09:56 INR 1.2 03/11/17 09:56 APTT 33 SECONDS (21-34) 03/11/17 09:56 - Constitutional Appears: Well, No Acute Distress - Head Exam Head Exam: ATRAUMATIC, NORMAL INSPECTION, NORMOCEPHALIC - Respiratory Exam Respiratory Exam: Clear to Ausculation Bilateral, NORMAL BREATHING PATTERN. absent: Rales, Rhonchi - Cardiovascular Exam Cardiovascular Exam: RRR, +S1, +S2 - GI/Abdominal Exam GI & Abdominal Exam: Soft, Normal Bowel Sounds. absent: Tenderness - Extremities Exam Extremities Exam: Normal Inspection. absent: Calf Tenderness - Neurological Exam Neurological Exam: Alert, Awake, Oriented x3 - Skin Skin Exam: Intact, Normal Color, Warm Assessment and Plan (1) Complete heart block Assessment & Plan: S/p transvenous pacer placement Rate set at 60 Pt will be transferred to [facility] for ICD placement Status: Acute
== END 2017-03-12 11:55 | disposition short-term general hospital (02) | DRG 309 ==
LOC: C.ER 09:27 → C.9E 10:01 → C.9I 10:56
PROVIDERS: ADMIT Internal Medicine Nephrology; ATTEND Internal Medicine Nephrology
DX: I44.2 Atrioventricular block, complete (principal); I42.9 Cardiomyopathy, unspecified; I50.22 Chronic systolic (congestive) heart failure; I11.0 Hypertensive heart disease with heart failure; I25.10 Atherosclerotic heart disease of native coronary artery without angina pectoris; E03.9 Hypothyroidism, unspecified; E78.5 Hyperlipidemia, unspecified; E11.649 Type 2 diabetes mellitus with hypoglycemia without coma; I25.82 Chronic total occlusion of coronary artery; Z87.891 Personal history of nicotine dependence